=== PATIENT | female | born 1955 | race Caucasian/White ===

== ENCOUNTER → 2017-01-09 | Outpatient (CLI) | payer OTHER ==
--- NOTE | 2017-01-12 09:15 | XR ---
EXAMINATION TYPE: XR hand complete bilateral DATE OF EXAM: 01/09/2017 3:29 PM CLINICAL HISTORY: Bilateral chronic hand pain. TECHNIQUE: Frontal, lateral and oblique images of the bilateral hands are obtained. COMPARISON: None. FINDINGS: There is no acute fracture/dislocation evident in either hand. Osseous structures are jordyn neralized. There is fairly advanced degenerative change in the the IP joints bilaterally most promine nt bilaterally at the second third and fifth digits slightly worse on the left versus the right with marked joint space loss as well as central subchondral cystic changes and marginal spurring and soft tissue swelling. Findings less pronounced at the PIP joints but there is soft tissue swelling with so me joint space loss and spurring most prominent fourth PIP joint right hand. There is sparing of meta carpal phalangeal joints. There is joint space loss base of first metacarpal. IMPRESSION: There are fairly symmetric degenerative changes in both hands as detailed above, suspect moderate to severe osteoarthritis given sparing of MCP joints.
== END | disposition home or self-care (01) ==
LOC: RADXRYALE 14:54
PROVIDERS: ATTEND Family Medicine
DX: M25.842 Other specified joint disorders, left hand (principal); M25.841 Other specified joint disorders, right hand; M79.642 Pain in left hand; M79.641 Pain in right hand

== ENCOUNTER → 2017-12-11 | Outpatient (CLI) | payer OTHER ==
--- NOTE | 2017-12-11 10:49 | US ---
EXAMINATION TYPE: US abdomen complete DATE OF EXAM: 12/11/2017 COMPARISON: NONE CLINICAL HISTORY: R10.9 ABD PAIN,R10.13 EPIGASTRIC PAIN. EXAM MEASUREMENTS: Liver Length: 15.1 cm Gallbladder Wall: 0.1 cm CBD: 0.4 cm Spleen: 9.8 cm Right Kidney: 11.5 x 4.6 x 3.7 cm Left Kidney: 11.3 x 4.7 x 4.6 cm Pancreas: wnl Liver: 2 hypoechoic, nonvascular masses noted near gallbladder neck/ portal vein 1) = 1.3 x 1.9 x 1. 2 cm 2)= 1.2 x 1.1 x 0.9 cm Gallbladder: wnl, with phrygian cap Evidence for sonographic Turner's sign: no CBD: wnl Spleen: wnl Right Kidney: wnl Left Kidney: wnl Upper IVC: wnl Abd Aorta: wnl The intrahepatic portion of the IVC and proximal abdominal aorta are within normal limits. There is no evidence of cholelithiasis. Common bile duct is unremarkable. The visualized portions of the trinh creas are homogenous. The spleen is unremarkable. Kidneys are symmetric and free of hydronephrosis. No renal lesions are seen. IMPRESSION: 1. Incompletely characterized hepatic masses measuring 1.9 cm and 1.2 cm. Further characterization wi th dynamic enhanced CT or MR abdomen (liver mass protocol) is recommended for further characterizatio n. 2. No sonographic evidence of cholelithiasis or acute cholecystitis.
--- NOTE | 2017-12-11 11:20 | US ---
EXAMINATION TYPE: US thyroid st tissue head/neck DATE OF EXAM: 12/11/2017 COMPARISON: NONE CLINICAL HISTORY: E03.9 HYPOTHYROIDISM. pt c/o rapid weight gain and feeling of "lump" in throat. MEASUREMENTS: GLAND SIZE: Right Lobe: 3.9 x 1.5 x 1.1 cm Left Lobe: 4.0 x 1.4 x 1.4 cm Isthmus Thickness: 0.2 cm NODULES RIGHT: # of nodules measured on right: 0 LEFT: # of nodules measured on left: 0 ISTHMUS: # of nodules measured within isthmus: 0 Bilateral neck scanned, no evidence of lymphadenopathy. Heterogeneous texture bilaterally. No distinct nodules seen IMPRESSION: No discrete thyroid nodules are thyroid gland enlargement. Diffusely heterogenous thyroi d gland echotexture can relate to thyroiditis. Correlate with serum laboratory values.
== END | disposition home or self-care (01) ==
LOC: RADUSWWP 08:55
PROVIDERS: ATTEND Family Medicine
DX: E04.9 Nontoxic goiter, unspecified (principal); E03.9 Hypothyroidism, unspecified; R10.13 Epigastric pain; R16.0 Hepatomegaly, not elsewhere classified
CPT/HCPCS: 76536; 76700

== ENCOUNTER 2017-12-14 08:22 | Day surgery (SDC) | payer OTHER ==
[2017-12-11 12:32] VITALS: BMI 25.8
[~2017-12-14 08:22] MED LIST: LACTATED RINGERS 1,000 ML IV SCH; LIDOCAINE 1% 20 ML VIAL (10MG/ML) FOR IV START INTRADERMA PRN
[2017-12-14 08:48] VITALS: TEMP 98.8
[2017-12-14 09:08] LABS: Glucose,Whole Blood 90 mg/dL (75-99)
[2017-12-14] MEDS ORDERED: LIDOCAINE 1% INJ 10MG/ML (20 ML MDV) ONE (09:11)
[2017-12-14] MEDS ORDERED: PROPOFOL 10 MG/ML 20 ML VIAL IV ONE (09:11)
[2017-12-14] MEDS ORDERED: MIDAZOLAM 2 MG/2 ML VIAL ONE (09:11)
--- NOTE | 2017-12-14 09:40 | P.PCN ---
Date of Procedure: 12/14/17 Procedure(s) Performed: Procedure: Esophagogastroduodenoscopy and biopsy. Preoperative diagnosis: Epigastric pain. Postoperative diagnosis: 1. Small sliding hiatal hernia with no obvious esophagitis or complicated reflux disease. 2. Mild antral gastritis. 3. Multiple biopsies obtained from the duodenum, antrum and esophagus. Preparation and sedation: Were provided by anesthesia. Brief clinical history: The patient is a 62-year-old female who is scheduled for this evaluation because of epigastric pain. The patient gave history of hiatal hernia. No alarm symptoms. Had an ultrasound of the abdomen 12/11/2017 that showed 2 hypoechoic nonvascular masses near the gallbladder neck. There was no evidence of cholelithiasis or acute cholecystitis. Dynamic enhanced CT or MRI was recommended by radiology. This evaluation is scheduled to assess for esophagitis or complicated reflux disease or other pathology. Procedure: With the patient on her left lateral decubitus position and after informed consent and adequate sedation, I passed the Olympus-GIF 160 video upper endoscope through the cricopharyngeus down the esophagus. GE junction was around 40 cm from the incisors and there was a 1-2 cm sliding hiatal hernia but no obvious esophagitis or complicated reflux disease. The endoscope was then passed into the stomach which was insufflated with air and inspected in detail including the retroflex view in the cardia. There was some mottling and erythema in the antrum but no ulcers or erosions. Pyloric channel, duodenal bulb, post bulbar area and descending duodenum appeared within normal limits. Because of her symptoms, I obtained biopsies from the duodenum, antrum and esophagus then the endoscope was withdrawn. The patient tolerated the procedure well. Plan: The patient was reassured. Will await pathology results. Further plans can be made based on her course, biopsy results and additional imaging studies as suggested by radiology. I would be happy to see in the office if her symptoms persist. She will follow-up with you as planned.
[2017-12-14 09:43] VITALS: RESP 18
[2017-12-14 09:56] VITALS: BP 153/81; PULSE 59
== END 2017-12-14 10:16 | disposition home or self-care (01) ==
LOC: ORWHC2ENDO 08:22
DX: K29.50 Unspecified chronic gastritis without bleeding (principal); B96.81 Helicobacter pylori [H. pylori] as the cause of diseases classified elsewhere; K44.9 Diaphragmatic hernia without obstruction or gangrene; I10 Essential (primary) hypertension; J45.909 Unspecified asthma, uncomplicated; E03.9 Hypothyroidism, unspecified; M06.9 Rheumatoid arthritis, unspecified; Z91.040 Latex allergy status; Z88.5 Allergy status to narcotic agent; Z88.1 Allergy status to other antibiotic agents; Z79.1 Long term (current) use of non-steroidal anti-inflammatories (NSAID); Z79.899 Other long term (current) drug therapy
CPT/HCPCS: 88305; 88342; 43239; J2250; J2001; J2704

== ENCOUNTER → 2017-12-25 | Outpatient (CLI) | payer OTHER ==
--- NOTE | 2017-12-25 16:34 | CT ---
EXAMINATION TYPE: CT abdomen wo/w con DATE OF EXAM: 12/25/2017 COMPARISON: NONE INDICATION: Weight gain, abdominal swelling DLP: 1689 mGycm, Automated exposure control for dose reduction was used. CONTRAST: 100 mL of Omnipaque 300. Study performed with Oral Contrast TECHNIQUE: Axial images were obtained from above the diaphragm to the pubic rami in the axial plane a t 5 mm thick sections. Reconstructed images are reviewed on the computer in the coronal plane. Dynam ic scanning to the liver was performed. FINDINGS: Limited CT sections are obtained the lung bases. The lung bases are clear. CT ABDOMEN: Liver: Early phase contrast imaging to the liver appear unremarkable. On post contrast imaging subtle hypodensity on both early and late phase is within the lateral right lobe liver. This is too small t o classify. Enhancement is not evident. There is an additional hypodensity near the gallbladder bed f sridhar. This has some peripheral enhancement and some edge enhancement on delayed images. This appears to have complete enhancement on the marked delayed images. Findings are likely related to a 1.0 cm he mangioma. Spleen: Normal Pancreas: Normal Adrenal glands: The adrenal glands are normal. Gallbladder: Normal Kidneys: No masses are evident. No hydronephrosis is present. There is a 1.1 cm cyst on the lateral right kidney measuring 0 Hounsfield units. Delayed images were obtained through the kidneys. Aorta: Vascular calcification is within the aorta. Inferior vena cava: Normal. Loops of bowel distended with oral contrast appear unremarkable. IMPRESSIONS: 1. Suspected hemangioma right lobe liver adjacent to the gallbladder bed fossa. 2. Nonspecific hypodense area within the right lobe liver too small to classify.
== END ==
LOC: RADCTMAIN 11:52
PROVIDERS: ATTEND Family Medicine
DX: K76.89 Other specified diseases of liver (principal)
CPT/HCPCS: 74170; Q9967

== ENCOUNTER → 2018-03-24 | Outpatient (CLI) | payer OTHER ==
--- NOTE | 2018-03-24 16:25 | XR ---
EXAMINATION TYPE: XR knee complete RT DATE OF EXAM: 03/24/2018 CLINICAL HISTORY: Right knee pain and swelling for 5 days. TECHNIQUE: Three views of the right knee are obtained. COMPARISON: None. FINDINGS: There is no acute fracture/dislocation evident in right knee. There is mild to moderate tr icompartment joint space loss. There is mild spurring patellofemoral compartment. The overlying soft tissue appears unremarkable. IMPRESSION: As above.
== END | disposition home or self-care (01) ==
LOC: RADXRYALE 15:34
PROVIDERS: ATTEND Physician Assistant Medical
DX: M22.2X2 Patellofemoral disorders, left knee (principal); M25.561 Pain in right knee

== ENCOUNTER → 2018-09-09 | Outpatient (CLI) | payer OTHER ==
--- NOTE | 2018-09-10 08:25 | CT ---
EXAMINATION TYPE: CT abdomen pelvis w con DATE OF EXAM: 09/09/2018 HISTORY: abdominal pain, weight gain, diarrhea, nausea X [address] DLP: 983.9mGycm Automated Exposure Control for Dose Reduction was Utilized. CONTRAST: CT scan of the abdomen and pelvis is performed with IV Contrast, patient injected with 100 mL of Isov ue 300. COMPARISON: 12/25/2017 CT and abdominal ultrasound dated 12/11/2017. FINDINGS: LUNG BASES: Prominent right subpleural fat is unchanged from the prior. Otherwise lung bases are unre markable. LIVER/GB: There is a similar appearing proximally 1.7 x 1.1 cm mass in segment IVb near the gallbladd er fossa that demonstrates arterial enhancement throughout on series 3 image 24. Additional new focus of subcapsular arterial enhancement is seen on series 3 image 22 within segment 6. At the most infer ior aspect of the right hepatic lobe on image 34 and coronal image 28 there is a 3 mm arterially enha ncing focus better appreciated on coronal images. All of these appear similar to background hepatic p arenchymal enhancement on delayed imaging. No intrapelvic biliary ductal dilatation. No cholelithiasi s. PANCREAS: No significant abnormality is seen. SPLEEN: No splenomegaly as the spleen measures 10.8 cm in craniocaudal dimension. ADRENALS: No significant abnormality is seen. KIDNEYS: Similar-appearing approximately 1.1 cm right renal cyst is present. No hydronephrosis. BOWEL: There is circumferential rectal wall thickening on series 3 images 72 and 73. This could relat e to incomplete distention although underlying mass is possible. Colon is suboptimally evaluated as c ontrast has not extended into the colon at the time of imaging. Additionally there is a small amount of retained colonic fecal debris also limiting evaluation. Scattered colonic diverticula are seen wit hout pericolonic fat stranding. UTERUS/ADNEXA: No gross abnormality seen. LYMPH NODES: No greater than 1cm abdominal or pelvic lymph nodes are appreciated. OSSEOUS STRUCTURES: Multilevel degenerative change of the spine is straightening of usual lumbar lord osis. IMPRESSION: 1. Similar size of the previously seen largest hepatic lesion with 2 new arterial enhancing subcentim eter lesions that are too small to characterize. In regards to the largest lesion that demonstrates a rterial enhancement without washout, however has atypical characteristics of a hemangioma on the abdo luis manuel ultrasound of 12/11/2017 and therefore confirmatory enhanced MRI would be advised. 2. Mild circumferential rectal wall thickening that may relate to incomplete distention or underlying mass. Colonoscopy would be recommended if not recently performed.
== END | disposition home or self-care (01) ==
LOC: RADCTMAIN 15:57
DX: K76.9 Liver disease, unspecified (principal); K62.89 Other specified diseases of anus and rectum; R10.30 Lower abdominal pain, unspecified
CPT/HCPCS: 74177; Q9967

== ENCOUNTER 2018-11-11 12:07 | Day surgery (SDC) | payer OTHER ==
[2018-11-05 14:24] VITALS: BMI 27.9
[~2018-11-11 12:07] MED LIST changes: -LACTATED RINGERS 1,000 ML IV SCH; +MIDAZOLAM (PF) 2 MG/2 ML VIAL IV PRN
[2018-11-11 12:58] VITALS: TEMP 97.5
[2018-11-11] MEDS: LACTATED RINGERS 1,000 ML IV SCH ×2 (13:15→13:25)
[2018-11-11] MEDS ORDERED: PROPOFOL 10 MG/ML 20 ML VIAL IV ONE (13:31)
--- NOTE | 2018-11-11 14:04 | P.PCN ---
Date of Procedure: 11/11/18 Procedure(s) Performed: Procedure: Colonoscopy and biopsy. Preoperative diagnosis: Change in bowel habits and abnormal CT of the abdomen. Postoperative diagnosis: 1. Diminutive rectal polyp biopsied, otherwise, exam of the colon and terminal ileum within normal limits. 2. Biopsies also obtained in the terminal ileum, right colon and rectum. Preparation: HalfLytely prep. Sedation: Was provided by anesthesia. Brief clinical history: The patient is a 63-year-old female who was scheduled for this evaluation because of intermittent diarrhea and abnormal CT showing thickened rectum. This evaluation is to assess for inflammatory bowel disease or neoplasia. Procedure: With the patient on her left lateral decubitus position and after informed consent and adequate sedation, the perianal area was inspected and it did not show any fissures or fistulas. There were no masses felt on digital rectal examination. The Olympus CFH 190L video colonoscope was then inserted in the rectum in the usual fashion and advanced to the cecum. I intubated the ileocecal valve and examined the terminal ileum. Terminal ileum and colon appeared healthy with no edema, erythema, friability, ulceration, exudation or spontaneous bleeding. No large polyps or tumors were seen. No obvious diverticular disease. There was a diminutive polyp in the rectum close to the rectosigmoid junction which was biopsied but there were no large polyps or tumors. The rectum did not show any abnormality to correspond to the finding on CT. Biopsies were obtained from the terminal ileum, right colon and rectum then the endoscope was retroflexed in the rectum before the endoscope was withdrawn. The patient tolerated the procedure well. Plan: The patient was reassured. Will await pathology results. Further plans based on her course.
[2018-11-11 14:20] VITALS: BP 129/69; PULSE 57; RESP 16
== END 2018-11-11 14:53 | disposition home or self-care (01) ==
LOC: ORWHC2ENDO 12:07
DX: D12.8 Benign neoplasm of rectum (principal); R93.5 Abnormal findings on diagnostic imaging of other abdominal regions, including retroperitoneum; J45.909 Unspecified asthma, uncomplicated; I10 Essential (primary) hypertension; E07.9 Disorder of thyroid, unspecified; B19.10 Unspecified viral hepatitis B without hepatic coma; Z79.2 Long term (current) use of antibiotics; Z79.890 Hormone replacement therapy; Z79.899 Other long term (current) drug therapy; Z88.5 Allergy status to narcotic agent; Z88.1 Allergy status to other antibiotic agents; Z91.040 Latex allergy status; Z98.51 Tubal ligation status
CPT/HCPCS: 88305; 45380; J2704

== ENCOUNTER → 2018-12-03 | Outpatient (CLI) | payer OTHER ==
--- NOTE | 2018-12-05 13:01 | XR ---
EXAMINATION TYPE: XR cervical spine comp DATE OF EXAM: 12/03/2018 COMPARISON: None HISTORY: 63-year-old female cervicalgia with intermittent numbness of the left upper extremity. TECHNIQUE: 5 views FINDINGS: Uncovertebral and facet joint arthropathy throughout. Moderate to advanced disposition of the degener ative change particularly from C3 through C5 levels and than at C6-C7 as well. Trace grade 1 anteroli sthesis at C7-T1. No predental space widening or prevertebral soft tissue swelling. Normal odontoid v iew. On the right, changes result in mild to moderate bony spondylotic neural foraminal narrowing at C6-C7 and mild additional levels. On the left, changes result in moderate bony spondylotic neuroforaminal narrowing at multiple levels, greatest at C3-C4 and C4-C5. IMPRESSION: Moderate to advanced spondylotic change. Degenerative grade 1 anterolisthesis at C7-T1. Variable mild neural foraminal narrowing on the right and moderate on the left.
== END | disposition home or self-care (01) ==
LOC: RADXRYALE 16:31
PROVIDERS: ATTEND Physician Assistant Medical
DX: M99.71 Connective tissue and disc stenosis of intervertebral foramina of cervical region (principal); M43.13 Spondylolisthesis, cervicothoracic region; M47.812 Spondylosis without myelopathy or radiculopathy, cervical region
CPT/HCPCS: 72050

== ENCOUNTER → 2018-12-24 | Outpatient (CLI) | payer OTHER ==
--- NOTE | 2018-12-25 19:31 | MR ---
EXAMINATION TYPE: MR cervical spine wo con DATE OF EXAM: 12/24/2018 COMPARISON: None HISTORY: Neck pain, Dave arm pain/weakness/numbness, Headaches TECHNIQUE: Multiplanar, multisequence images of the cervical spine were acquired. The cervical vertebra have normal alignment. There is degenerative disc space 9 from C3 to C7 with sp urring of the endplates. The skull base appears intact. Brainstem appears normal. Cervical spinal cor d shows no evidence of edema. There is no significant spinal stenosis. The spinal canal measures 7.5 mm at the narrowest point which is C4-5 level. There is no compression fracture. I see no focal bone destruction. There is multilevel hypertrophic facet arthropathy. IMPRESSION: Multilevel spondylotic changes. Posterior mild disc herniations at C3-4 and C4-5 and C6-7 without sig nificant impingement on the spinal canal.
== END ==
LOC: RADMRIMAIN 19:28
PROVIDERS: ATTEND Physician Assistant Medical
DX: M50.223 Other cervical disc displacement at C6-C7 level (principal); M47.812 Spondylosis without myelopathy or radiculopathy, cervical region
CPT/HCPCS: 72141

== ENCOUNTER → 2019-10-13 | Outpatient (CLI) | payer OTHER ==
--- NOTE | 2019-10-13 10:39 | CT ---
EXAMINATION TYPE: CT abdomen wo/w con DATE OF EXAM: 10/13/2019 COMPARISON: 09/09/2018, 12/25/2017 INDICATION: follow up to hemangioma DLP: 1160.9 mGycm, Automated exposure control for dose reduction was used. CONTRAST: 100 mL of Isovue 300. Study performed with Oral Contrast TECHNIQUE: Axial images were obtained from above the diaphragm to the pubic rami in the axial plane a t 5 mm thick sections. Reconstructed images are reviewed on the computer in the coronal plane. FINDINGS: Limited CT sections are obtained the lung bases. The lung bases are clear. CT ABDOMEN: Liver: Adjacent to the ligamentum teres near the hepatic hilum on early phase contrast is a 1.5 x 1.7 cm peripherally irregular enhancing area. This area corresponds homogenous enhancement present on th e 09/09/2018 examination which measured 1.7 x 1.1 cm. Delayed images were obtained which appears to rivera ve homogenous liver density. Residual enhancement is not evident. The small area of subtle enhancement in the periphery of the right lobe liver identified previously i s not evident through multiple pulse sequences on the current examination. Spleen: Normal Pancreas: Normal Adrenal glands: The adrenal glands are normal. Gallbladder: Normal Kidneys: No masses are evident. No hydronephrosis is present. No obvious cysts are present. Delaye d images were obtained through the kidneys, a small cortical renal cyst is identified in the right ki dney on delayed images.. Aorta: Vascular calcification is within the aorta. Inferior vena cava: Normal. Limited CT PELVIS: Loops of bowel within the abdomen and upper pelvis are normal. There are loops of bowel which are incompletely distended or lack oral contrast limiting their evaluation. Appendix: Normal as visualized. IMPRESSIONS: 1. Heterogenous appearance to the enhancement in the liver at the previous location adjacent to the ligamentum teres. This is not classically follow up hemangioma enhancement pattern and has increased in size over the interval. Confirmation of findings is recommended with a contrast MRI of the liver. This could also evaluate the previous subtle area of enhancement within the periphery of the right lo be liver identified previously.
== END | disposition home or self-care (01) ==
LOC: RADCTMAIN 08:31
PROVIDERS: ATTEND Physician Assistant Medical
DX: D18.03 Hemangioma of intra-abdominal structures (principal); M79.605 Pain in left leg; M79.661 Pain in right lower leg; I10 Essential (primary) hypertension
CPT/HCPCS: 93922; 74170; Q9967

== ENCOUNTER → 2019-12-28 | Outpatient (CLI) | payer OTHER ==
--- NOTE | 2019-12-28 17:08 | MR ---
EXAMINATION TYPE: MR abdomen wo/w con DATE OF EXAM: 12/28/2019 COMPARISON: Correlation CT abdomen 10/13/2019 and 09/09/2018 HISTORY: 64-year-old female with abnormal findings on liver, R93.2 Technique: Multiplanar, multisequence images of the abdomen were obtained before and after administra tion of 10 mL intravenous Gadavist gadolinium contrast. FINDINGS: Heart normal size of the pericardial effusion. Liver is normal size. Opposed phase T1-weighted sequences show no evidence for any significant fatty infiltration. 2 lesions along the gallbladder fossa show T2 bright and T1 dark signal measuring 1.8 and 1.0 cm, unc hanged in size from the 09/09/2018 exam. The larger lesion shows peripheral nodular enhancement and fill-in on the most delayed scan. The smal ler lesion shows homogeneous arterial enhancement and persistent enhancement up to the delayed scan. A few scattered tiny hepatic cysts are noted. Some focal fat along the anterior falciform ligament. N o biliary ductal dilatation. Portal venous system is patent. Gallbladder, adrenal glands, left kidney, spleen, and pancreas appear within normal limits. 1 cm cortical cyst lateral midpole right kidney. No upper abdominal lymphadenopathy, ascites fluid, or gross bowel abnormality. Normal appendix is vis ualized. IMPRESSION: 1. 2 lesions measuring 1.8 and 1.0 cm along the gallbladder fossa. Size is stable back to 09/09/2018. Enhancement characteristics suggest a conventional hemangioma for the larger lesion and flash filling hemangioma for the smaller lesion, both benign. 2. Additional tiny subcentimeter hepatic cysts.
== END | disposition home or self-care (01) ==
LOC: RADMRIMAIN 13:01
PROVIDERS: ATTEND Physician Assistant
DX: K82.8 Other specified diseases of gallbladder (principal); K76.89 Other specified diseases of liver
CPT/HCPCS: 74183; A9585

== ENCOUNTER → 2020-01-20 | Outpatient (CLI) | payer OTHER ==
--- NOTE | 2020-01-23 09:59 | MM ---
Reason for exam: screening (asymptomatic). Last mammogram was performed 14 years and 4 months ago. History: Patient is postmenopausal. Benign lumpectomy of both breasts, 1989. Physical Findings: A clinical breast exam by your physician is recommended on an annual basis and results should be correlated with mammographic findings. MG Screening Mammo w CAD Bilateral CC and MLO view(s) were taken. No prior studies available for comparison. The breast tissue is heterogeneously dense. This may lower the sensitivity of mammography. Finding: There are intermediate round, grouped/clustered calcifications in the middle position of both breasts, 3-4cm on left, 5cm on right. ASSESSMENT: Incomplete: need additional imaging evaluation, BI-RAD 0 RECOMMENDATION: Special view mammogram of both breasts. [facility] will attempt to contact patient to return for supplemental views.
== END | disposition home or self-care (01) ==
LOC: RADMAMWWP 15:39
PROVIDERS: ATTEND Family Medicine
DX: Z12.31 Encounter for screening mammogram for malignant neoplasm of breast (principal); R92.8 Other abnormal and inconclusive findings on diagnostic imaging of breast
CPT/HCPCS: 77067

== ENCOUNTER → 2020-01-27 | Outpatient (CLI) | payer OTHER ==
--- NOTE | 2020-01-27 12:19 | MM ---
Reason for exam: additional evaluation requested from abnormal screening. Last mammogram was performed less than 1 month ago. History: Patient is postmenopausal. Benign lumpectomy of both breasts, 1989. Physical Findings: Nurse did not find any significant physical abnormalities on exam. MG 3D Work Up W/Cad EBER Bilateral CC with magnification and ML with magnification view(s) were taken. Prior study comparison: January 20, 2020, bilateral MG screening mammo w CAD. September 30, 2005, bilateral screening mammogram, performed at [facility]. The breast tissue is heterogeneously dense. This may lower the sensitivity of mammography. There is a 4mm group of calcifications in the upper inner quadrant at middle depth most of which appear to layer on the spot magnifications view. Precautionary 6 month follow up recommended. The left calcifications do not persist as a true group on additional views. These results were verbally communicated with the patient and result sheet given to the patient on 01/27/20. ASSESSMENT: Probably benign, BI-RAD 3 RECOMMENDATION: Follow-up diagnostic mammogram of the right breast in 6 months.
== END | disposition home or self-care (01) ==
LOC: RADMAMWWP 10:47
PROVIDERS: ATTEND Family Medicine
DX: R92.8 Other abnormal and inconclusive findings on diagnostic imaging of breast (principal)
CPT/HCPCS: 77062; 77066

== ENCOUNTER → 2021-11-11 | Outpatient (CLI) | payer MEDICARE ==
--- NOTE | 2021-11-11 14:34 | CT ---
EXAMINATION TYPE: CT brain wo/w con DATE OF EXAM: 11/11/2021 COMPARISON: None HISTORY: 66-year-old female R42, dizziness, nausea, vomiting TECHNIQUE: Examination was done in axial plane without intravenous contrast. Coronal and sagittal r econstructions performed. CT DLP: 1920.3 mGycm Automated exposure control for dose reduction was used. FINDINGS: There is no evidence of acute intracranial hemorrhage, acute ischemic changes, mass, mass-effect, or extra-axial fluid collection. There is no effacement of cerebral sulci or basal subarachnoid cister ns. There is no hydrocephalus. There is no midline shift. Mallory-white matter distinction is preserv ed. Scattered dystrophic dural calcifications along the falx. No enhancing intracranial lesions. Dural venous sinuses are patent. Orbits and globes are intact. Visualized paranasal sinuses show trace mucosal thickening ethmoid air cells. Mastoid air cells well pneumatized. IMPRESSION: No acute intracranial abnormality seen. No enhancing intracranial lesions.
--- NOTE | 2021-11-11 14:37 | CT ---
EXAMINATION TYPE: CT facial bones wo con DATE OF EXAM: 11/11/2021 COMPARISON: None HISTORY: 66-year-old female R42, dizziness, nausea, vomiting TECHNIQUE: Contiguous axial scanning of the facial bones without IV contrast. Coronal reconstructions performed. CT DLP: 705 mGycm Automated exposure control for dose reduction was used. FINDINGS: Trace mucosal thickening ethmoid air cells. Leftward nasal septal deviation. The sphenoid, frontal, and maxillary sinuses are well-pneumatized. No air-fluid levels. No reactive new osteogenesis. Osteomeatal complexes are patent. No acute fracture of the facial bones. IMPRESSION: TRACE MUCOSAL THICKENING ETHMOID AIR CELLS. LEFTWARD NASAL SEPTAL DEVIATION.
== END | disposition home or self-care (01) ==
LOC: RADCTMAIN 12:54
PROVIDERS: ATTEND Family Medicine
DX: J34.89 Other specified disorders of nose and nasal sinuses (principal)
CPT/HCPCS: 82565; 84520; 70486; 70470; 36415; Q9967

== ENCOUNTER → 2022-03-25 | Outpatient (CLI) | payer MEDICARE ==
--- NOTE | 2022-03-25 15:40 | MM ---
Reason for Exam: Hx of benign breast biopsy. Last mammogram was performed 2 year(s) and 2 month(s) ago. Patient History: Menarche at age 17. First Full-Term at age 29. Postmenopausal. 1989, Bilateral Benign Lumpectomy. Risk Values: Kiersten 5 year model risk: 1.7%. NCI Lifetime model risk: 6.1%. Film Views: Bilateral CC views were taken. Bilateral MLO views were taken. Tissue Density: The breast tissue is heterogeneously dense. This may lower the sensitivity of mammography. Findings: Analyzed By CAD. Small grouped area of microcalcifications centrally on the right MLO view and centrally on the left CC view remain unchanged for just over 2 years. This is compatible with a benign etiology. No significant change from prior exam. Overall Assessment: Benign, BI-RAD 2 Management: Screening Mammogram of both breasts in 1 year. Results were given to the patient verbally at the time of exam. A clinical breast exam by your physician is recommended on an annual basis and results should be correlated with mammographic findings. Patient should continue monthly self breast exams.
--- NOTE | 2022-03-25 17:07 | BD ---
EXAMINATION TYPE: Axial Bone Density DATE OF EXAM: 03/25/2022 CLINICAL HISTORY: 67 years year old Female. ICD-10 CODE: M84.80 OTHER DISORDERS OF CONTINUITY OF BON E, UNSPECIFIED SI Height: 68 Weight: 187.6 FRAX RISK QUESTIONS: Alcohol (3 or more units per day): NO Family History (Parent hip fracture): NO Glucocorticoids (More than 3mos): NO History of Fracture in Adulthood: NO Secondary Osteoporosis: 1. Type 1 Diabetes: NO 2. Hyperthyroidism: NO 3. Menopause before 45: YES 4. Malnutrition: NO 5. Chronic liver disease: NO Rheumatoid Arthritis: NO Current Tobacco Use: NO RISK FACTORS HISTORY OF: Hip Fracture (Right/Left): NO Spine Fracture: NO History of Wrist Fracture: NO Surgery to Spine/Hip(right/left)/Wrist (right/left): BILAT WRIST When: AGE 65 Family History of Osteoporosis: NO Active: YES Diet low in dairy products/other sources of calcium: YES Postmenopausal woman: YES Take estrogen and/or progesterone medications: NO Lost more than 2 inches in height since high school: YES Frequent falls: NO Poor Health: NO Hyperparathyroidism: NO Adrenal Insufficiency: NO MEDICATIONS: Prednisone or other steroids: NO Thyroid Medications: SYNTHROID How Long: PAST 38 YEARS Osteoporosis Medications: NO Additional Medications: BP MEDS, SINGULAR, VIT D, ZINC, FLOVENT INHALERS Additional History: EXAM MEASUREMENTS: Bone mineral densitometry was performed using the [employer]. Bone mineral density as measured about the Lumbar spine is: ----- L1-L4(G/cm2): 1015 T Score Values are as follows: ----- L1: -2.3 ----- L2: -2.5 ----- L3: -2.2 ----- L4: 0.4 ----- L1-L4: -1.4 BASELINE STUDY Bone mineral density about the R hip (g/cm2): 0.856 Bone mineral density about the L hip (g/cm2): 0.906 T Score values are as follows: -----R Neck: -1.3 -----L Neck: -0.9 -----R Total: -0.6 -----L Total: -0.8 BASELINE STUDY FRAX%s: The graph provided illustrates a 8.6% chance for a major osteoporotic fx and a 0.8% chance fo r the hips probability for fx in 10 years time. IMPRESSION: Osteopenia (T Score between -2.5 and -1). There is slightly increased risk of fracture and the patient may be considered for treatment. Re-Screen 2-5 years. NOTE: T-SCORE=SD OF THE YOUNG ADULT MEAN.
== END | disposition home or self-care (01) ==
LOC: RADMAMWWP 14:05
PROVIDERS: ATTEND Family Medicine
DX: R92.8 Other abnormal and inconclusive findings on diagnostic imaging of breast (principal); M85.89 Other specified disorders of bone density and structure, multiple sites; Z78.0 Asymptomatic menopausal state
CPT/HCPCS: 77080; 77066; G0279; 77062

== ENCOUNTER 2023-05-11 17:31 | Emergency (ER) | payer MEDICARE ==
--- NOTE | 2023-05-11 17:36 | ED ---
General Adult HPI - General Source: RN notes reviewed <Diane Adams - Last Filed: 05/11/23 17:39> <Joe Perdomo - Last Filed: 05/12/23 00:09> - General Stated complaint: MANISH, history of Dr Archana Sent Time Seen by Provider: 05/11/23 17:36 - History of Present Illness Initial comments: 68-year-old female with past medical history significant for asthma presents the emergency department with worsening shortness of breath. She reports she has taken multiple breathing treatments at home without symptomatic relief. (Diane Adams) This is a 68-year-old female with a past medical history including anxiety and asthma presents to the emergency department for increasing shortness of breath. The patient stated that throughout the day today she stated that she tried to walk around the house but could not catch her breath. The patient did state that she had similar episodes in the past but stated that she never come to the emergency department for it. The patient did state that she used a breathing treatment at home as well as an Ativan but her physician did advise her to come to the emergency department for the evaluation. On arrival, the patient did seem anxious and tachypneic however had full deep breaths noted. The patient denied any other acute pain or complaints at this time. The patient denied any fevers, chills as well as any nausea and vomiting. (Joe Perdomo) - Related Data Home Medications Medication Instructions Recorded Confirmed Levalbuterol Hfa Inhaler [Xopenex 2 puff INHALATION Q4HR PRN 06/20/14 11/11/18 Hfa Inhaler] Levocetirizine Dihydrochloride 5 mg PO DAILY 06/20/14 11/11/18 [Xyzal] Levothyroxine Sodium [Synthroid] 100 mcg PO DAILY 06/20/14 11/11/18 atenoloL [Tenormin] 25 mg PO DAILY 06/20/14 11/11/18 Acyclovir [Zovirax] 200 mg PO BID PRN 12/11/17 11/11/18 Montelukast [Singulair] 10 mg PO DAILY 12/11/17 11/11/18 Amoxic-Pot Clav 500-125 mg 1 tab PO Q12HR 11/05/18 11/11/18 [Augmentin 500-125 mg] hydroCHLOROthiazide [Hydrodiuril] 25 mg PO DAILY 11/05/18 11/11/18 Allergies Allergy/AdvReac Type Severity Reaction Status Date / Time gentamicin [Gentamicin] Allergy Rash/Hives Verified 11/11/18 12:55 latex Allergy Rash/Hives Verified 11/11/18 12:55 codeine AdvReac Vomiting Verified 11/11/18 12:55 Review of Systems ROS Other: All systems not noted in ROS Statement are negative. <Diane Adams - Last Filed: 05/11/23 17:39> ROS Other: All systems not noted in ROS Statement are negative. <Joe Perdomo - Last Filed: 05/12/23 00:09> ROS Statement: Those systems with pertinent positive or pertinent negative responses have been documented in the HPI. Past Medical History Past Medical History: Asthma, Hypertension Additional Past Medical History / Comment(s): hypothyroid, migraines History of Any Multi-Drug Resistant Organisms: None Reported Past Surgical History: Tonsillectomy, Tubal Ligation Additional Past Surgical History / Comment(s): lumpectomy Past Anesthesia/Blood Transfusion Reactions: Family History of Problems w/ Anesthesia, Motion Sickness, Postoperative Nausea & Vomiting (PONV) Additional Past Anesthesia/Blood Transfusion Reaction / Comment(s): states mothers heart stopped. Past Psychological History: No Psychological Hx Reported Past Alcohol Use History: Occasional Past Drug Use History: None Reported - Past Family History Sister(s) Family Medical History: Cancer Additional Family Medical History / Comment(s): lung cancer <Diane Adams - Last Filed: 05/11/23 17:39> General Exam <Diane Adams - Last Filed: 05/11/23 17:39> Limitations: no limitations General appearance: alert, anxious Head exam: Present: atraumatic, normocephalic, normal inspection Eye exam: Present: normal appearance, PERRL Pupils: Present: normal accommodation ENT exam: Present: normal exam, normal oropharynx, mucous membranes moist Neck exam: Present: normal inspection, full ROM Respiratory exam: Present: normal lung sounds bilaterally. Absent: wheezes, decreased breath sounds Cardiovascular Exam: Present: regular rate, normal rhythm, normal heart sounds GI/Abdominal exam: Present: soft, normal bowel sounds Extremities exam: Present: normal inspection, full ROM Back exam: Present: normal inspection, full ROM Neurological exam: Present: alert, oriented X3, CN II-XII intact Psychiatric exam: Present: anxious Skin exam: Present: warm, dry <Joe Perdomo - Last Filed: 05/12/23 00:09> - General Exam Comments Initial Comments: Visual Physical Exam Vital signs reviewed General: Well-appearing, nontoxic, no acute distress. Head: Normocephalic, atraumatic Eyes: PERRLA, EOMI ENT: Airway patent Chest: Nonlabored breathing Skin: No visual rash, normal skin tone Neuro: Alert and oriented 3 Musculoskeletal: No gross abnormalities (Diane Adams) Course Vital Signs 05/11/23 05/11/23 05/11/23 17:39 18:42 21:00 Temperature 97.8 F Pulse Rate 99 81 73 Respiratory 18 34 H 16 Rate Blood Pressure 126/72 118/71 141/82 O2 Sat by Pulse 99 99 99 Oximetry 05/11/23 23:55 Temperature Pulse Rate 80 Respiratory 18 Rate Blood Pressure 136/98 O2 Sat by Pulse 97 Oximetry EKG Findings - EKG Comments: EKG Findings:: An EKG was obtained and was interpreted by myself showing a rate of 86, MO interval 163, QRS duration of 88 and QTC of 427. This EKG showed a normal sinus rhythm with no ST segment elevation or depression noted. <Joe Perdomo - Last Filed: 05/12/23 00:09> Medical Decision Making - Lab Data Result diagrams: 05/11/23 19:26 05/11/23 19:26 <Joe Perdomo - Last Filed: 05/12/23 00:09> - Medical Decision Making Was pt. sent in by a medical professional or institution (, PA, BIZTALK CONSULTANT, urgent care, hospital, or correction...) When possible be specific @ -No Did you speak to anyone other than the patient for history (EMS, parent, family, police, friend...)? What history was obtained from this source @ -No Did you review nursing and triage notes (agree or disagree)? Why? @ -I reviewed and agree with nursing and triage notes Were old charts reviewed (outside hosp., previous admission, EMS record, old EKG, old radiological studies, urgent care reports/EKG's, correction records)? Report findings @ -No old charts were reviewed Differential Diagnosis (chest pain, altered mental status, abdominal pain women, abdominal pain men, vaginal bleeding, weakness, fever, dyspnea, syncope, headache, dizziness, GI bleed, back pain, seizure, CVA, palpatations, mental health)? @ -Pulmonary embolism, ACS, pneumonia, pneumothorax, panic attack EKG interpreted by me (3pts min.). @ -As above X-rays interpreted by me (1pt min.). @ -Chest x-ray was obtained and was interpreted by myself showing no acute process. CT interpreted by me (1pt min.). @ -None done U/S interpreted by me (1pt. min.). @ -None done What testing was considered but not performed or refused? (CT, X-rays, U/S, labs)? Why? @ -None What meds were considered but not given or refused? Why? @ -None Did you discuss the management of the patient with other professionals (professionals i.e. , PA, BIZTALK CONSULTANT, lab, RT, psych nurse, social organization professor, licensed electrician, teacher, dog license officer supervisor, case specialist)? Give summary @ -No Was smoking cessation discussed for >3mins.? @ -No Was critical care preformed (if so, how long)? @ -No Were there social determinants of health that impacted care today? How? (Homelessness, low income, unemployed, alcoholism, drug addiction, transportation, low edu. Level, literacy, decrease access to med. care, intermediate, rehab)? @ -No Was there de-escalation of care discussed even if they declined (Discuss DNR or withdrawal of care, Hospice)? DNR status @ -No What co-morbidities impacted this encounter? (DM, HTN, Smoking, COPD, CAD, Cancer, CVA, ARF, Chemo, Hep., AIDS, mental health diagnosis, sleep apnea, mor bid obesity)? @ -Asthma, anxiety Was patient admitted / discharged? Hospital course, mention meds given and route, prescriptions, significant lab abnormalities, going to OR and other pertinent info. @ -The patient was seen and evaluated in the emergency department. Physical exam, the patient was resting in bed With minor distress secondary to anxiety. Vital signs admission were however stable and within normal limits. Due to the patient's shortness of breath despite having a normal chest exam on auscultation, had full laboratory workup obtained as well as a chest x-ray and EKG. All laboratory workup was within normal limits and due to the patient's anxious presentation, the patient did receive 0.5 mg of Ativan. The patient was allowed to continue to be closely monitored in the emergency department and on reevaluation, the patient stated that "I feel like a full and I just want to go home." The patient stated that she no longer had any pain or anxiety and felt "silly for wasting your time." The patient continued to remain stable without any acute complaints. The patient had no further tachypnea or tachycardia as well as any anxiety. The patient was resting in bed comfortably. The patient was advised to follow-up with her primary care physician for further workup and evaluation and to report back to the emergency department if her symptoms became acutely worse. The patient was agreeable to this and all of her questions were answered. The patient was discharged home in stable condition. Undiagnosed new problem with uncertain prognosis? @ -No Drug Therapy requiring intensive monitoring for toxicity (Heparin, Nitro, Insulin, Cardizem)? @ -No Were any procedures done? @ -No Diagnosis/symptom? @ -Shortness of breath secondary to panic attack, anxiety Acute, or Chronic, or Acute on Chronic? @ -Acute Uncomplicated (without systemic symptoms) or Complicated (systemic symptoms)? @ -Complicated Side effects of treatment? @ -No Exacerbation, Progression, or Severe Exacerbation? @ -No Poses a threat to life or bodily function? How? (Chest pain, USA, NH, pneumonia, PE, COPD, DKA, ARF, appy, cholecystitis, CVA, Diverticulitis, Homicidal, Suicidal, threat to staff... and all critical care pts) @ -No (Joe Perdomo) - Lab Data Lab Results 05/11/23 05/11/23 05/11/23 Range/Units 17:43 19:26 19:26 WBC 7.0 (3.8-10.6) k/uL RBC 5.00 (3.80-5.40) m/uL Hgb 15.6 (11.4-16.0) gm/dL Hct 45.8 (34.0-46.0) % MCV 91.7 (80.0-100.0) fL MCH 31.2 (25.0-35.0) pg MCHC 34.0 (31.0-37.0) g/dL RDW 12.9 (11.5-15.5) % Plt Count 329 (150-450) k/uL MPV 8.3 Neutrophils % 59 % Lymphocytes % 30 % Monocytes % 6 % Eosinophils % 1 % Basophils % 0 % Neutrophils # 4.1 (1.3-7.7) k/uL Lymphocytes # 2.1 (1.0-4.8) k/uL Monocytes # 0.4 (0-1.0) k/uL Eosinophils # 0.1 (0-0.7) k/uL Basophils # 0.0 (0-0.2) k/uL PT 10.5 (9.0-12.0) sec INR 1.0 (<1.2) APTT 25.6 (22.0-30.0) sec D-Dimer 0.21 (<0.60) mg/L FEU Sodium (137-145) mmol/L Potassium (3.5-5.1) mmol/L Chloride (98-107) mmol/L Carbon Dioxide (22-30) mmol/L Anion Gap mmol/L BUN (7-17) mg/dL Creatinine (0.52-1.04) mg/dL Est GFR (CKD-EPI)AfAm (>60 ml/min/1.73 sqM) Est GFR (CKD-EPI)NonAf (>60 ml/min/1.73 sqM) Glucose (74-99) mg/dL POC Glucose (mg/dL) 104 (70-110) mg/dL POC Glu Cloth Dyer ID Belval, Etelvina Calcium (8.4-10.2) mg/dL Magnesium (1.6-2.3) mg/dL Total Bilirubin (0.2-1.3) mg/dL AST (14-36) U/L ALT (4-34) U/L Alkaline Phosphatase (38-126) U/L Troponin I (0.000-0.034) ng/mL NT-Pro-B Natriuret Pep pg/mL Total Protein (6.3-8.2) g/dL Albumin (3.5-5.0) g/dL 05/11/23 05/11/23 05/11/23 Range/Units 19:26 19:26 19:26 WBC (3.8-10.6) k/uL RBC (3.80-5.40) m/uL Hgb (11.4-16.0) gm/dL Hct (34.0-46.0) % MCV (80.0-100.0) fL MCH (25.0-35.0) pg MCHC (31.0-37.0) g/dL RDW (11.5-15.5) % Plt Count (150-450) k/uL MPV Neutrophils % % Lymphocytes % % Monocytes % % Eosinophils % % Basophils % % Neutrophils # (1.3-7.7) k/uL Lymphocytes # (1.0-4.8) k/uL Monocytes # (0-1.0) k/uL Eosinophils # (0-0.7) k/uL Basophils # (0-0.2) k/uL PT (9.0-12.0) sec INR (<1.2) APTT (22.0-30.0) sec D-Dimer (<0.60) mg/L FEU Sodium 141 (137-145) mmol/L Potassium 4.0 (3.5-5.1) mmol/L Chloride 108 H (98-107) mmol/L Carbon Dioxide 19 L (22-30) mmol/L Anion Gap 14 mmol/L BUN 15 (7-17) mg/dL Creatinine 0.68 (0.52-1.04) mg/dL Est GFR (CKD-EPI)AfAm >90 (>60 ml/min/1.73 sqM) Est GFR (CKD-EPI)NonAf >90 (>60 ml/min/1.73 sqM) Glucose 82 (74-99) mg/dL POC Glucose (mg/dL) (70-110) mg/dL POC Glu Cloth Dyer ID Calcium 10.5 H (8.4-10.2) mg/dL Magnesium 2.1 (1.6-2.3) mg/dL Total Bilirubin 0.9 (0.2-1.3) mg/dL AST 35 (14-36) U/L ALT 35 H (4-34) U/L Alkaline Phosphatase 49 (38-126) U/L Troponin I <0.012 (0.000-0.034) ng/mL NT-Pro-B Natriuret Pep 488 pg/mL Total Protein 7.5 (6.3-8.2) g/dL Albumin 4.7 (3.5-5.0) g/dL Disposition <Diane Adams - Last Filed: 05/11/23 17:39> Is patient prescribed a controlled substance at d/c from ED?: No Time of Disposition: 23:00 <Joe Perdomo - Last Filed: 05/12/23 00:09> Clinical Impression: Anxiety, Panic attack Disposition: HOME SELF-CARE Condition: Stable Instructions (If sedation given, give patient instructions): Anxiety (ED), Panic Attack (ED) Referrals: Tomer Kumar DO [Primary Care Provider] - 1-2 days
[2023-05-11 17:42] VITALS: TEMP 97.8
[2023-05-11 17:44] LABS: Glucose,Whole Blood 104 mg/dL (70-110)
--- NOTE | 2023-05-11 18:55 | XR ---
EXAMINATION TYPE: XR chest 2V DATE OF EXAM: 05/11/2023 6:40 PM COMPARISON: Chest radiographs from 07/07/2011 TECHNIQUE: XR chest 2V Frontal and lateral views of the chest. CLINICAL INDICATION:Female, 68 years old with history of Asthma; FINDINGS: Lungs/Pleura: There is no evidence of pleural effusion, focal consolidation, or pneumothorax. Pulmonary vascularity: Unremarkable. Heart/mediastinum: Cardiomediastinal silhouette is unremarkable. Musculoskeletal: No acute osseous pathology. IMPRESSION: No acute cardiopulmonary disease/process.
[2023-05-11] MEDS ORDERED: LORazepam 2 MG/ML INJ IV STA (19:54)
[2023-05-11 20:15] LABS: Basophils % (A) 0 %; Eosinophils # (A) 0.1 k/uL (0-0.7); Eosinophils % (A) 1 %; HCT 45.8 % (34.0-46.0); HGB 15.6 gm/dL (11.4-16.0); Lymphocytes # (A) 2.1 k/uL (1.0-4.8); Lymphocytes % (A) 30 %; MCH 31.2 pg (25.0-35.0); MCV 91.7 fL (80.0-100.0); Mean Platelet Volume 8.3; Monocytes # (A) 0.4 k/uL (0-1.0); Monocytes % (A) 6 %; Neutrophils # (A) 4.1 k/uL (1.3-7.7); Neutrophils % (A) 59 %; Platelet Count 329 k/uL (150-450); RDW 12.9 % (11.5-15.5)
[2023-05-11 20:22] LABS: ALT 35 U/L (4-34); AST 35 U/L (14-36); African American GFR (CKD) >90 (>60 ml/min/1.73 sqM); Albumin 4.7 g/dL (3.5-5.0); Alkaline Phosphatase 49 U/L (38-126); Anion Gap 14 mmol/L; Blood Urea Nitrogen 15 mg/dL (7-17); Calcium 10.5 mg/dL (8.4-10.2); Carbon Dioxide 19 mmol/L (22-30); Chloride 108 mmol/L (98-107); Glucose 82 mg/dL (74-99); Magnesium 2.1 mg/dL (1.6-2.3); Non-African American GFR(CKD) >90 (>60 ml/min/1.73 sqM); Sodium 141 mmol/L (137-145); Total Bilirubin 0.9 mg/dL (0.2-1.3); Total Protein 7.5 g/dL (6.3-8.2)
[2023-05-11 20:23] LABS: Partial Thromboplastin Time 25.6 sec (22.0-30.0); Prothrombin Time 10.5 sec (9.0-12.0)
[2023-05-11 23:56] VITALS: BP 136/98; PULSE 80; RESP 18
== END 2023-05-11 23:56 | disposition home or self-care (01) ==
LOC: EC 17:31
DX: F41.0 Panic disorder [episodic paroxysmal anxiety] (principal); J45.909 Unspecified asthma, uncomplicated; I10 Essential (primary) hypertension; Z79.899 Other long term (current) drug therapy; Z88.5 Allergy status to narcotic agent; Z91.040 Latex allergy status; Z88.8 Allergy status to other drugs, medicaments and biological substances
CPT/HCPCS: 36415; 93005; 85379; 83880; 80053; 83735; 84484; 85025; 85610; 85730; 71046; 99285; 96374; J2060

== ENCOUNTER → 2023-09-08 | Outpatient (CLI) | payer MEDICARE ==
[2023-09-08 22:30] LABS: Alternaria alternata IgE <0.10 kU/L; Aspergillus fumagatus IgE <0.10 kU/L; Birch IgE <0.10 kU/L; Cat Epith & Dander IgE <0.10 kU/L; Cladosporian herbarum IgE <0.10 kU/L; Clam IgE <0.10 kU/L; Cockroach IgE <0.10 kU/L; Codfish IgE <0.10 kU/L; Dermato. farinae IgE <0.10 kU/L; Dog Dander IgE <0.10 kU/L; Egg White IgE <0.10 kU/L; Elm IgE <0.10 kU/L; Maple (Box Elder) IgE <0.10 kU/L; Oak IgE <0.10 kU/L; Peanut IgE <0.10 kU/L; Ragweed,Common IgE <0.10 kU/L; Red Top (Bentgrass) IgE <0.10 kU/L; Scallop IgE <0.10 kU/L; Shrimp IgE <0.10 kU/L; Soybean IgE <0.10 kU/L; Walnut IgE (Food) <0.10 kU/L
== END | disposition home or self-care (01) ==
LOC: LABWHC1 14:36
PROVIDERS: ATTEND Internal Medicine Critical Care Medicine
DX: J45.909 Unspecified asthma, uncomplicated (principal)
CPT/HCPCS: 36415; 82785; 86003

== ENCOUNTER → 2023-10-28 | Outpatient (CLI) | payer MEDICARE ==
--- NOTE | 2023-11-03 19:07 | MM ---
Reason for Exam: Screening (asymptomatic). Last mammogram was performed 1 year(s) and 7 month(s) ago. Patient History: Menarche at age 17. First Full-Term at age 29. Postmenopausal. 1989, Bilateral Benign Lumpectomy. Sister had breast cancer, age 63. Risk Values: Kiersten 5 year model risk: 3.0%. NCI Lifetime model risk: 10.2%. Prior Study Comparison: 01/20/2020 Bilateral Screening Mammogram, [facility]. 01/27/2020 Bilateral Diagnostic Mammogram, [facility]. 03/25/2022 Bilateral MG 3D diag mammo w/cad EBER, [facility]. Tissue Density: The breast tissue is heterogeneously dense. This may lower the sensitivity of mammography. Findings: Analyzed By CAD. Unchanged grouped calcifications in the right breast. There is no suspicious group of microcalcifications or new suspicious mass in either breast. Overall Assessment: Benign, BI-RAD 2 Management: Screening Mammogram of both breasts in 1 year. See note below in regards to patient's increased 5 year Kiersten score. Patient should continue monthly self-breast exams. A clinical breast exam by your physician is recommended on an annual basis. This exam should not preclude additional follow-up of suspicious palpable abnormalities. Note on Kiersten scores and lifetime risk: 1. A Kiersten score greater than 3% is considered moderate risk. If this is the case, consider specialist referral to assess eligibility for a risk reducing agent. 2. If overall lifetime risk for the development of breast cancer is 20% or higher, the patient may qualify for future screening with alternating mammogram and breast MRI. Electronically signed and approved by: Lavern Kilgore M.D. Radiologist
== END | disposition home or self-care (01) ==
LOC: RADMAMWWP 14:56
PROVIDERS: ATTEND Family Medicine
DX: Z12.31 Encounter for screening mammogram for malignant neoplasm of breast (principal); Z78.0 Asymptomatic menopausal state; Z80.3 Family history of malignant neoplasm of breast
CPT/HCPCS: 77063; 77067

== ENCOUNTER 2023-11-25 12:21 | Emergency (ER) | payer MEDICARE ==
[2023-11-25] MEDS ORDERED: LORazepam 2 MG/ML INJ IV STA (12:38)
[2023-11-25] MEDS ORDERED: IPRATROPIUM-ALBUTEROL 3 ML NEB INHALATION STA (12:38)
--- NOTE | 2023-11-25 12:51 | ED ---
General Adult HPI - General Chief complaint: Shortness of Breath Stated complaint: Asthma & Panic Attack Time Seen by Provider: 11/25/23 12:29 Source: patient Mode of arrival: wheelchair Limitations: no limitations - History of Present Illness Initial comments: Dictation was produced using [employer] dictation software. please excuse any grammatical, word or spelling errors. Chief Complaint: 68-year-old female with past medical history of asthma hypertension presents to the ER for dyspnea History of Present Illness: 68-year-old female she has past medical history of asthma. She states she woke up feeling fine and all of a sudden became anxious. She was seen at station [facility] office. She is monitored at the pulmonology office for couple hours. Ultimately she was sent to the ER for shortness of breath. Patient states that she has some tightness in her chest patient does have a history of anxiety. Patient's not sure if she is having respiratory failure or an anxiety reaction. She complains of tingling to her arms and legs The ROS documented in this emergency department record has been reviewed and confirmed by me. Those systems with pertinent positive or negative responses have been documented in the HPI. All other systems are other negative and/or noncontributory. - Related Data Home Medications Medication Instructions Recorded Confirmed Levalbuterol Hfa Inhaler [Xopenex 1 - 2 puff INHALATION RT-Q4H PRN 06/20/14 11/25/23 Hfa Inhaler] Levocetirizine Dihydrochloride 5 mg PO HS 06/20/14 11/25/23 [Xyzal] Levothyroxine Sodium [Synthroid] 100 mcg PO DAILY 06/20/14 11/25/23 Montelukast [Singulair] 10 mg PO HS 12/11/17 11/25/23 Acyclovir [Zovirax] 400 mg PO BID 11/25/23 11/25/23 Azithromycin [Zithromax] 500 mg PO DIRECTED 11/25/23 11/25/23 Calcium Carbonate [Calcium] 600 mg PO DAILY 11/25/23 11/25/23 Cholecalciferol [Vitamin D3 (25 50 mcg PO DAILY 11/25/23 11/25/23 Mcg = 1000 Iu)] Fluticasone/Umeclidin/Vilanter 1 puff INHALATION RT-DAILY 11/25/23 11/25/23 [Trelegy Ellipta 200-62.5-25] LORazepam [Ativan] 0.5 mg PO BID PRN 11/25/23 11/25/23 Magnesium Oxide [Magnesium] 500 mg PO DAILY 11/25/23 11/25/23 Zinc Gluconate [Zinc] 50 mg PO DAILY 11/25/23 11/25/23 atenoloL [Tenormin] 50 mg PO HS 11/25/23 11/25/23 predniSONE See Taper PO DIRECTED 11/25/23 11/25/23 traMADol HCL 50 - 100 mg PO Q6H PRN 11/25/23 11/25/23 Allergies Allergy/AdvReac Type Severity Reaction Status Date / Time gentamicin [Gentamicin] Allergy Rash/Hives Verified 11/25/23 13:47 latex Allergy Rash/Hives Verified 11/25/23 13:47 codeine AdvReac Vomiting Verified 11/25/23 13:47 Review of Systems ROS Statement: Those systems with pertinent positive or pertinent negative responses have been documented in the HPI. ROS Other: All systems not noted in ROS Statement are negative. Past Medical History Past Medical History: Asthma, Hypertension Additional Past Medical History / Comment(s): hypothyroid, migraines History of Any Multi-Drug Resistant Organisms: None Reported Past Surgical History: Tonsillectomy, Tubal Ligation Additional Past Surgical History / Comment(s): lumpectomy Past Anesthesia/Blood Transfusion Reactions: Family History of Problems w/ A nesthesia, Motion Sickness, Postoperative Nausea & Vomiting (PONV) Additional Past Anesthesia/Blood Transfusion Reaction / Comment(s): states mothers heart stopped. Past Psychological History: No Psychological Hx Reported Past Alcohol Use History: Occasional Past Drug Use History: None Reported - Past Family History Sister(s) Family Medical History: Cancer Additional Family Medical History / Comment(s): lung cancer General Exam - General Exam Comments Initial Comments: PHYSICAL EXAM: General Impression: Alert and oriented x3, anxious, hyperventilating HEENT: Normocephalic atraumatic, extra-ocular movements intact, pupils equal and reactive to light bilaterally, mucous membranes moist. Cardiovascular: Heart regular rate and rhythm Chest: Tachypneic Abdomen: abdomen soft, non-tender, non-distended, no organomegaly Musculoskeletal: Pulses present and equal in all extremities, no peripheral edema Motor: no focal deficits noted Neurological: CN II-XII grossly intact, no focal motor or sensory deficits noted Skin: Intact with no visualized rashes Psych: anxious Limitations: no limitations Course Vital Signs 11/25/23 11/25/23 11/25/23 12:23 12:40 12:50 Temperature 97.6 F Pulse Rate 66 97 98 Respiratory 18 Rate Blood Pressure 136/72 O2 Sat by Pulse 86 L Oximetry 11/25/23 11/25/23 11/25/23 12:51 14:00 14:48 Temperature 98.3 F Pulse Rate 75 73 Respiratory 26 H 20 18 Rate Blood Pressure 116/65 119/76 O2 Sat by Pulse 100 97 Oximetry EKG Findings - EKG Comments: EKG Findings:: My EKG interpretation: Ventricular rate 69, sinus rhythm,. 150, QRS 86, QTC 417. No [place] prolongation, no QTC prolongation, no ST or T-wave changes noted. Overall, this EKG is unremarkable Medical Decision Making - Medical Decision Making Was pt. sent in by a medical professional or institution (, PA, CHIEF VENDOR QUALITY, urgent care, hospital, or residential...) When possible be specific @ -No Did you speak to anyone other than the patient for history (EMS, parent, family, police, friend...)? What history was obtained from this source @ -No Did you review nursing and triage notes (agree or disagree)? Why? @ -I reviewed and agree with nursing and triage notes Were old charts reviewed (outside hosp., previous admission, EMS record, old EKG, old radiological studies, urgent care reports/EKG's, residential records)? Report findings @ -No old charts were reviewed Differential Diagnosis (chest pain, altered mental status, abdominal pain women, abdominal pain men, vaginal bleeding, musculoskeletal, weakness, fever, dyspn ea, syncope, headache, dizziness, GI bleed, back pain, seizure, CVA, palpatations, mental health)? @ -Differential Dyspnea: Coronary syndrome, arrhythmia, tamponade, asthma, COPD, pulmonary embolism, pneumonia, pneumothorax, pulmonary effusion, anaphylaxis, diabetic ketoacidosis, flailed chest, pulmonary contusion, diaphragmatic rupture, anemia, neuromuscular, this is not meant to be an all-inclusive list. EKG interpreted by me (3pts min.). @ -See above X-rays interpreted by me (1pt min.). @ -Chest x-ray shows no acute processes CT interpreted by me (1pt min.). @ -None done U/S interpreted by me (1pt. min.). @ -None done What testing was considered but not performed or refused? (CT, X-rays, U/S, la bs)? Why? @ -None What meds were considered but not given or refused? Why? @ -None Did you discuss the management of the patient with other professionals (professionals i.e. , PA, CHIEF VENDOR QUALITY, lab, RT, psych nurse, social media marketer, lane attendant, teacher, community service officer coordinator, pillowcase cutter)? Give summary @ -No Was smoking cessation discussed for >3mins.? @ -No Was critical care preformed (if so, how long)? @ -No Were there social determinants of health that impacted care today? How? (Homelessness, low income, unemployed, alcoholism, drug addiction, transportation, low edu. Level, literacy, decrease access to med. care, group home, rehab)? @ -No Was there de-escalation of care discussed even if they declined (Discuss DNR or withdrawal of care, Hospice)? DNR status @ -No What co-morbidities impacted this encounter? (DM, HTN, Smoking, COPD, CAD, Cancer, CVA, ARF, Chemo, Hep., AIDS, mental health diagnosis, sleep apnea, morbid obesity)? @ -None Was patient admitted / discharged? Hospital course, mention meds given and route, prescriptions, significant lab abnormalities, going to OR and other pertinent info. @ -68-year-old female presents to the emergency department for acute dyspnea. Vital signs upon arrival shows hypoxia 86% on room air, rest of vital signs within acceptable limits. Repeat oxygen level was normal at the bedside. It appears to be very anxious. Laboratory evaluation obtained. CBC, coag panel metabolic panel within acceptable limits. She does have a troponin of 4.0 initially. He is given IV fluids and anxiolytic medications. She was observed in emergency department for couple hours. All testing negative. Repeat lactic acid is normal. Patient ambulatory at baseline. Chest x-ray is nonacute. This point clinical presentation consistent with anxiety reaction. Patient discharged advised follow-up with primary care doctor. Undiagnosed new problem with uncertain prognosis? @ -No Drug Therapy requiring intensive monitoring for toxicity (Heparin, Nitro, Insulin, Cardizem)? @ -No Were any procedures done? @ -No Diagnosis/symptom? Acute, or Chronic, or Acute on Chronic? Uncomplicated (without systemic symptoms) or Complicated (systemic symptoms)? @ -Anxiety reaction complicated by respiratory distress Side effects of treatment? @ -No Exacerbation, Progression, or Severe Exacerbation? @ -No Poses a threat to life or bodily function? How? (Chest pain, [place], [place], pneumonia, PE, COPD, DKA, ARF, appy, cholecystitis, CVA, Diverticulitis, Homicidal, Suicidal, threat to staff... and all critical care pts) @ -No - Lab Data Result diagrams: 11/25/23 12:46 11/25/23 12:46 Lab Results 11/25/23 11/25/23 11/25/23 Range/Units 12:46 12:46 12:46 WBC 10.8 H (3.8-10.6) k/uL RBC 5.41 H (3.80-5.40) m/uL Hgb 17.1 H (11.4-16.0) gm/dL Hct 50.6 H (34.0-46.0) % MCV 93.6 (80.0-100.0) fL MCH 31.6 (25.0-35.0) pg MCHC 33.8 (31.0-37.0) g/dL RDW 12.9 (11.5-15.5) % Plt Count 389 (150-450) k/uL MPV 7.8 Neutrophils % 56 % Lymphocytes % 32 % Monocytes % 7 % Eosinophils % 1 % Basophils % 1 % Neutrophils # 6.0 (1.3-7.7) k/uL Lymphocytes # 3.4 (1.0-4.8) k/uL Monocytes # 0.7 (0-1.0) k/uL Eosinophils # 0.1 (0-0.7) k/uL Basophils # 0.1 (0-0.2) k/uL PT 10.8 (10.0-12.5) sec INR 1.0 (<1.2) APTT 26.4 (22.0-30.0) sec D-Dimer 0.30 (<0.60) mg/L FEU Sodium 140 (137-145) mmol/L Potassium 4.3 (3.5-5.1) mmol/L Chloride 106 (98-107) mmol/L Carbon Dioxide 22 (22-30) mmol/L Anion Gap 12 mmol/L BUN 20 H (7-17) mg/dL Creatinine 0.81 (0.52-1.04) mg/dL Est GFR (CKD-EPI)AfAm 88 (>60 ml/min/1.73 sqM) Est GFR (CKD-EPI)NonAf 76 (>60 ml/min/1.73 sqM) Glucose 75 (74-99) mg/dL Plasma Lactic Acid Ezequiel (0.7-2.0) mmol/L Calcium 11.0 H (8.4-10.2) mg/dL Magnesium 2.2 (1.6-2.3) mg/dL Troponin I (0.000-0.034) ng/mL Influenza Type A (PCR) (Not Detectd) Influenza Type B (PCR) (Not Detectd) RSV (PCR) (Not Detectd) SARS-CoV-2 (PCR) (Not Detectd) 11/25/23 11/25/23 11/25/23 Range/Units 12:46 12:46 12:46 WBC (3.8-10.6) k/uL RBC (3.80-5.40) m/uL Hgb (11.4-16.0) gm/dL Hct (34.0-46.0) % MCV (80.0-100.0) fL MCH (25.0-35.0) pg MCHC (31.0-37.0) g/dL RDW (11.5-15.5) % Plt Count (150-450) k/uL MPV Neutrophils % % Lymphocytes % % Monocytes % % Eosinophils % % Basophils % % Neutrophils # (1.3-7.7) k/uL Lymphocytes # (1.0-4.8) k/uL Monocytes # (0-1.0) k/uL Eosinophils # (0-0.7) k/uL Basophils # (0-0.2) k/uL PT (10.0-12.5) sec INR (<1.2) APTT (22.0-30.0) sec D-Dimer (<0.60) mg/L FEU Sodium (137-145) mmol/L Potassium (3.5-5.1) mmol/L Chloride (98-107) mmol/L Carbon Dioxide (22-30) mmol/L Anion Gap mmol/L BUN (7-17) mg/dL Creatinine (0.52-1.04) mg/dL Est GFR (CKD-EPI)AfAm (>60 ml/min/1.73 sqM) Est GFR (CKD-EPI)NonAf (>60 ml/min/1.73 sqM) Glucose (74-99) mg/dL Plasma Lactic Acid Ezequiel 4.0 H* (0.7-2.0) mmol/L Calcium (8.4-10.2) mg/dL Magnesium (1.6-2.3) mg/dL Troponin I <0.012 (0.000-0.034) ng/mL Influenza Type A (PCR) Not Detected (Not Detectd) Influenza Type B (PCR) Not Detected (Not Detectd) RSV (PCR) Not Detected (Not Detectd) SARS-CoV-2 (PCR) Not Detected (Not Detectd) 11/25/23 Range/Units 14:32 WBC (3.8-10.6) k/uL RBC (3.80-5.40) m/uL Hgb (11.4-16.0) gm/dL Hct (34.0-46.0) % MCV (80.0-100.0) fL MCH (25.0-35.0) pg MCHC (31.0-37.0) g/dL RDW (11.5-15.5) % Plt Count (150-450) k/uL MPV Neutrophils % % Lymphocytes % % Monocytes % % Eosinophils % % Basophils % % Neutrophils # (1.3-7.7) k/uL Lymphocytes # (1.0-4.8) k/uL Monocytes # (0-1.0) k/uL Eosinophils # (0-0.7) k/uL Basophils # (0-0.2) k/uL PT (10.0-12.5) sec INR (<1.2) APTT (22.0-30.0) sec D-Dimer (<0.60) mg/L FEU Sodium (137-145) mmol/L Potassium (3.5-5.1) mmol/L Chloride (98-107) mmol/L Carbon Dioxide (22-30) mmol/L Anion Gap mmol/L BUN (7-17) mg/dL Creatinine (0.52-1.04) mg/dL Est GFR (CKD-EPI)AfAm (>60 ml/min/1.73 sqM) Est GFR (CKD-EPI)NonAf (>60 ml/min/1.73 sqM) Glucose (74-99) mg/dL Plasma Lactic Acid Ezequiel 1.4 (0.7-2.0) mmol/L Calcium (8.4-10.2) mg/dL Magnesium (1.6-2.3) mg/dL Troponin I (0.000-0.034) ng/mL Influenza Type A (PCR) (Not Detectd) Influenza Type B (PCR) (Not Detectd) RSV (PCR) (Not Detectd) SARS-CoV-2 (PCR) (Not Detectd) Disposition Clinical Impression: Anxiety reaction Disposition: HOME SELF-CARE Condition: Good Instructions (If sedation given, give patient instructions): Anxiety (ED) Is patient prescribed a controlled substance at d/c from ED?: No Referrals: Tomer Kumar DO [Primary Care Provider] - 1-2 days Time of Disposition: 14:52
[2023-11-25 13:24] LABS: Basophils # (A) 0.1 k/uL (0-0.2); Basophils % (A) 1 %; Eosinophils # (A) 0.1 k/uL (0-0.7); Eosinophils % (A) 1 %; HCT 50.6 % (34.0-46.0); HGB 17.1 gm/dL (11.4-16.0); Lymphocytes # (A) 3.4 k/uL (1.0-4.8); Lymphocytes % (A) 32 %; MCH 31.6 pg (25.0-35.0); MCHC 33.8 g/dL (31.0-37.0); MCV 93.6 fL (80.0-100.0); Mean Platelet Volume 7.8; Monocytes # (A) 0.7 k/uL (0-1.0); Monocytes % (A) 7 %; Neutrophils % (A) 56 %; Platelet Count 389 k/uL (150-450); RBC 5.41 m/uL (3.80-5.40); RDW 12.9 % (11.5-15.5); WBC 10.8 k/uL (3.8-10.6)
[2023-11-25 13:25] LABS: Partial Thromboplastin Time 26.4 sec (22.0-30.0); Prothrombin Time 10.8 sec (10.0-12.5)
--- NOTE | 2023-11-25 13:31 | XR ---
EXAMINATION TYPE: XR chest 2V DATE OF EXAM: 11/25/2023 1:18 PM CLINICAL INDICATION:Female, 68 years old with history of dyspnea; [facility] COMPARISON: Chest radiographs from 05/11/2023 TECHNIQUE: XR chest 2V Frontal and lateral views of the chest. FINDINGS: Lungs/Pleura: There is no evidence of pleural effusion, focal consolidation, or pneumothorax. Pulmonary vascularity: Unremarkable. Heart/mediastinum: Cardiomediastinal silhouette is unremarkable. Musculoskeletal: No acute osseous pathology. Other findings: None IMPRESSION: No acute cardiopulmonary disease/process.
[2023-11-25 13:41] LABS: African American GFR (CKD) 88 (>60 ml/min/1.73 sqM); Anion Gap 12 mmol/L; Blood Urea Nitrogen 20 mg/dL (7-17); Carbon Dioxide 22 mmol/L (22-30); Chloride 106 mmol/L (98-107); Glucose 75 mg/dL (74-99); Magnesium 2.2 mg/dL (1.6-2.3); Non-African American GFR(CKD) 76 (>60 ml/min/1.73 sqM); Potassium 4.3 mmol/L (3.5-5.1); Sodium 140 mmol/L (137-145)
[2023-11-25 14:59] VITALS: BP 119/76; PULSE 73; RESP 18; TEMP 98.3
== END 2023-11-25 15:05 | disposition home or self-care (01) ==
LOC: EC 12:21
DX: F41.1 Generalized anxiety disorder (principal); I10 Essential (primary) hypertension; J45.909 Unspecified asthma, uncomplicated; E03.9 Hypothyroidism, unspecified; Z20.822 Contact with and (suspected) exposure to COVID-19; Z79.890 Hormone replacement therapy; Z79.51 Long term (current) use of inhaled steroids; Z79.899 Other long term (current) drug therapy; Z88.1 Allergy status to other antibiotic agents; Z88.5 Allergy status to narcotic agent; Z91.040 Latex allergy status
CPT/HCPCS: 36415; 94640; 93005; 85379; 80048; 83605; 83735; 84484; 85025; 85610; 85730; 87636; 71046; 99285; 96374; J2060

== ENCOUNTER → 2024-03-18 | Outpatient (CLI) | payer MEDICARE ==
--- NOTE | 2024-03-18 08:48 | MM ---
Reason for Exam: Clinical finding. Last screening mammogram was performed 5 month(s) ago. Indicated Problems: Lump or thickening of the left side for 1 Week(s). Patient History: Menarche at age 17. First Full-Term at age 29. Postmenopausal. 1989, Bilateral Benign Lumpectomy. Sister had breast cancer, age 63. Risk Values: Kiersten 5 year model risk: 3.1%. NCI Lifetime model risk: 9.8%. Prior Study Comparison: 01/27/2020 Bilateral Diagnostic Mammogram, [facility]. 03/25/2022 Bilateral MG 3D diag mammo w/cad EBER, [facility]. 10/28/2023 Bilateral MG 3D screening mammo w/cad, [facility]. Tissue Density: Left: The breasts are heterogeneously dense, which may obscure small masses. Findings: Analyzed By CAD. Palpable marker along the upper outer quadrant of the left breast. No underlying abnormality is seen. No significant change from prior exams. Overall Assessment: Incomplete: need additional imaging evaluation, BI-RAD 0 Management: Diagnostic Breast Ultrasound of the left breast. Electronically signed and approved by: Lavern Kilgore M.D. Radiologist
--- NOTE | 2024-03-18 13:29 | USB ---
Reason for Exam: Clinical finding. Patient History: Menarche at age 17. First Full-Term at age 29. Postmenopausal. 1989, Bilateral Benign Lumpectomy. Sister had breast cancer, age 63. Risk Values: Kiersten 5 year model risk: 3.1%. NCI Lifetime model risk: 9.8%. Technique: Method: Targeted. Prior Study Comparison: 01/27/2020 Bilateral Diagnostic Mammogram, [facility]. 03/25/2022 Bilateral MG 3D diag mammo w/cad EBER, [facility]. 10/28/2023 Bilateral MG 3D screening mammo w/cad, [facility]. Findings: The area of palpable concern of the left breast, the axilla of the left breast and the retroareolar of the left breast were scanned. Targeted ultrasound left breast 1:00 position including scanning of the subareolar region and axilla. At the 1:00 palpable site, no abnormality is identified. No solid or cystic lesion or axillary lymphadenopathy. Overall Assessment: Negative, BI-RAD 1 Management: Return to routine follow-up (next follow-up: 10/28/2024 for Screening Mammogram) Back on schedule. Further clinical management of any suspicious palpable areas. A clinical breast exam by your physician is recommended on an annual basis and results should be correlated with mammographic findings. This exam should not preclude additional follow-up of suspicious palpable abnormalities. Results were given to the patient verbally at the time of exam. Note on Kiersten scores and lifetime risk: 1. A Kiersten score greater than 3% is considered moderate risk. If this is the case, consider specialist referral to assess eligibility for a risk reducing agent. 2. If overall lifetime risk for the development of breast cancer is 20% or higher, the patient may qualify for future screening with alternating mammogram and breast MRI. Electronically signed and approved by: Lavern Kilgore M.D. Radiologist
== END | disposition home or self-care (01) ==
LOC: RADMAMWWP 08:21
PROVIDERS: ATTEND Family Medicine
DX: R92.332 Mammographic heterogeneous density, left breast (principal); N63.21 Unspecified lump in the left breast, upper outer quadrant; Z78.0 Asymptomatic menopausal state; Z80.3 Family history of malignant neoplasm of breast
CPT/HCPCS: 77065; 76642; G0279; 77061

== ENCOUNTER → 2024-07-18 | Outpatient (CLI) | payer MEDICARE ==
--- NOTE | 2024-07-18 11:58 | XR ---
EXAMINATION TYPE: XR cervical spine comp DATE OF EXAM: 07/18/2024 11:45 AM CLINICAL INDICATION: Female, 69 years old with history of [id number],[id number]; [facility] COMPARISON: 12/03/2018 TECHNIQUE: The cervical spine was imaged in frontal, lateral, odontoid and bilateral oblique. FINDINGS: The osseous structures show normal alignment without evidence of an acute fracture. There are osteoph ytes noted throughout the cervical spine on the anterior and lateral aspects of the vertebral bodies. The intervertebral disk spaces are narrowed at multiple levels. Pedicles are intact. Soft tissues a re within normal limits. The odontoid appears intact. IMPRESSION: 1. No fracture or dislocation. 2. Mild progression of now Moderate degenerative disc disease changes of the cervical spine.
== END | disposition home or self-care (01) ==
LOC: RADXRYALE 11:32
PROVIDERS: ATTEND Family Medicine
DX: M50.321 Other cervical disc degeneration at C4-C5 level (principal); M50.320 Other cervical disc degeneration, mid-cervical region, unspecified level; R20.2 Paresthesia of skin; R51.9 Headache, unspecified
CPT/HCPCS: 72050

== ENCOUNTER → 2024-07-22 | Outpatient (CLI) | payer MEDICARE ==
--- NOTE | 2024-07-22 15:14 | MR ---
EXAMINATION TYPE: MR cervical spine wo con DATE OF EXAM: 07/22/2024 2:44 PM COMPARISON: 12/24/2018 HISTORY: Neck Pain for years Multiplanar MultiSpin echo imaging of the cervical spine was performed. Comparison: none C2-C3: No evidence for degenerative disc disease. No disc bulge/herniation or protrusion. No Canal stenosis. Foramina are patent bilaterally. C3-C4: Moderate disc desiccation with mild posterior disc bulge and mild effacement ventral thecal sa c. No evidence for central stenosis. Visualized left neural foramen is mildly narrowed. C4-C5: Moderate disc desiccation with posterior disc bulge. Mild effacement ventral thecal sac. Borde rline to mild central stenosis suggested. Moderate left foraminal encroachment. C5-C6: Mild to moderate degenerative disc desiccation with posterior disc bulge mild effacement ventr al thecal sac. No evidence for focal herniation or central stenosis. Mild to moderate left-sided fora luis manuel encroachment. C6-C7: Moderate disc desiccation with mild posterior disc bulge. Mild effacement ventral thecal sac. No evidence for herniation or central stenosis. Moderate left foraminal impingement. C7-T1: No evidence for degenerative disc disease. No disc bulge/herniation or protrusion. No Canal stenosis. Foramina are patent bilaterally. Cervical segments are intact. There is normal alignment. Cervical spinal cord is of normal signal. Craniovertebral junction relationships are within normal limits. IMPRESSION: 1. Multilevel degenerative disc disease with multilevel disc bulging and foraminal encroachment. Bord ariel to mild central stenosis redemonstrated at C4-5.
== END | disposition home or self-care (01) ==
LOC: RADMRIMAIN 13:08
PROVIDERS: ATTEND Family Medicine
DX: M48.02 Spinal stenosis, cervical region (principal); M50.321 Other cervical disc degeneration at C4-C5 level; R20.2 Paresthesia of skin
CPT/HCPCS: 72141

== ENCOUNTER → 2024-08-22 | Outpatient (CLI) | payer MEDICARE ==
--- NOTE | 2024-08-22 14:51 | P.PAINPG ---
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 Pt states pain level is provoked at 8 /10 in intensity, constant, localized in the lower cervical spine, predominantly axial, dull in character w occasional shooting pain towards the shoulders and UEs. Pain is provoked by hyperextension, rotation. Pain is alleviated by medications (Tramadol 50mg #180, Tyl, Ibu), manual massage, repositioning and rest . PMH: OA, Asthma, HTN PSH: Tonsillectomy, Lumpectomy, Tubal Ligation SH: Never smoker, Occ ETOH use, No illicit drug use FH: Sis- Lung CA All: See list Meds: See list REVIEW OF ORGAN SYSTEMS: CONSTITUTIONAL: No fevers or chills. No recent weight loss. NEUROLOGICAL: + numbness and tingling along the distal extremities. No seizure disorders or headaches. MUSCULOSKELETAL: + pain PSYCHIATRIC: Denies current depression or suicidal thoughts. Physical Examinations : Constitutional : Cooperative , not in acute distress . Neurologic : Cranial nerve II to XII intact. No focal neurological deficits. Psychiatric : alert & oriented x 3. Matching mood & appropriate affect. Judgment & insight intact. Musculoskeletal : Cervical Spine Motor strength in the deltoid and biceps: Normal right side. Normal Left side Motor strength biceps and the wrist extensors: Normal right side . Normal left side Motor strength in the triceps muscle: Normal right side. Normal left side Deep tendon reflexes: Normal at the biceps. Normal at Brachioradialis. Normal at triceps Vertebral body tenderness to deep palpation over C6 Cervical facet loading test: positive bilaterally Spurling test: positive bilaterally Neck distraction test: positive bilaterally Ronny sign: positive bilaterally Lumbar spine Motor strength lower extremities ,thigh and legs 5/5 Right side , 5/5 Left side Deep tendon reflexes : Normal Knee Jerk. Normal Ankle Jerk Vertebral body tenderness over Melara Test positive Lumbar facet Loading Test: positive Right / positive Left Range of motion of the lumbar spine Flexion 30 degrees, extension 10 degrees Straight Leg Raise test: Left/ Right positive at degrees Nannette test: positive right / positive left. Severe tenderness over the Sacroiliac joint on the Right / Left sides Gaenslen test: positive bilaterally Seated flexion test: positive bilaterally. Sacral spine : Severe tenderness over the Sacroiliac joint: right side / left side Range of motion: Flexion of the lumbar spine <60 degrees Range of motion: Extension of the lumbar spine <20 degrees Gaenslen's Test positive Nannette test: positive right side / left side Thigh Thrust Test Sacral Thrust Test Imaging: MRI non contrast cervical spine from 07/22/24 reviewed Assessment/ Plan : Cervical radiculopathy Recommendation of PT x 6 wks M54.12. All questions answered. I have spent greater than 30 minutes on patient care today. Dr Hennessy was available by phone for the evaluation of this patient. The time was used to review the medical records including relevant urine studies and Prescription history (MAPs), review of the available imaging, evaluation and examination of the patient, coordination of care with the medical staff and if applicable referring physicians, as well as creation of the medical record PQRS Narrative: Smoking Status Never smoker Home Medications: Ambulatory Orders Levalbuterol Hfa Inhaler [Xopenex Hfa Inhaler] 1 - 2 puff INHALATION RT-Q4H PRN 06/20/14 Levothyroxine Sodium [Synthroid] 100 mcg PO DAILY 06/20/14 Montelukast [Singulair] 10 mg PO HS 12/11/17 Calcium Carbonate [Calcium] 600 mg PO DAILY 11/25/23 Fluticasone/Umeclidin/Vilanter [Trelegy Ellipta 200-62.5-25] 1 puff INHALATION RT-DAILY 11/25/23 Zinc Gluconate [Zinc] 50 mg PO DAILY 11/25/23 traMADol HCL 50 - 100 mg PO Q6H PRN 11/25/23 Controlled Substance Measures - Controlled Substance Measures Is patient prescribed a controlled substance at discharge?: No
== END ==
LOC: PNWHC3 10:51
PROVIDERS: ATTEND Specialist
DX: M50.122 Cervical disc disorder at C5-C6 level with radiculopathy (principal); M50.121 Cervical disc disorder at C4-C5 level with radiculopathy; M47.22 Other spondylosis with radiculopathy, cervical region; Z91.040 Latex allergy status; Z88.5 Allergy status to narcotic agent; Z88.8 Allergy status to other drugs, medicaments and biological substances
CPT/HCPCS: 99211

== ENCOUNTER → 2024-10-13 | Outpatient (CLI) | payer MEDICARE ==
[2024-10-13 14:25] VITALS: BP 128/81; PULSE 89; RESP 18; TEMP 97.6
--- NOTE | 2024-10-13 15:24 | P.PAINPG ---
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 Pt states pain level is provoked at 8 /10 in intensity, constant, localized in the upper cervical spine, predominantly axial, sharp in character w occasional shooting pain towards the top of the head. Pain is provoked by hyperextension, rotation. Pain is alleviated by PT x 6 wks which ended in early Oct 2024 (cervical), physician guided home exercise/ stretching regimen daily since Sep 2024 (cervical), medications, topical, manual massage, repositioning and rest . Interventional procedures include Medications include Tramadol 50mg #180, Tyl, Ibu, CBD oil REVIEW OF ORGAN SYSTEMS: CONSTITUTIONAL: No fevers or chills. No recent weight loss. NEUROLOGICAL: + numbness and tingling along the distal extremities. No seizure disorders or headaches. MUSCULOSKELETAL: + pain PSYCHIATRIC: Denies current depression or suicidal thoughts. Physical Examinations : Constitutional : Cooperative , not in acute distress . Neurologic : Cranial nerve II to XII intact. No focal neurological deficits. Psychiatric : alert & oriented x 3. Matching mood & appropriate affect. Judgment & insight intact. Musculoskeletal : +BL NAYAN TTP Cervical Spine Motor strength in the deltoid and biceps: Normal right side. Normal Left side Motor strength biceps and the wrist extensors: Normal right side . Normal left side Motor strength in the triceps muscle: Normal right side. Normal left side Deep tendon reflexes: Normal at the biceps. Normal at Brachioradialis. Normal at triceps Vertebral body tenderness to deep palpation over C6 Cervical facet loading test: positive bilaterally Spurling test: positive bilaterally Neck distraction test: positive bilaterally Ronny sign: positive bilaterally Lumbar spine Motor strength lower extremities ,thigh and legs 5/5 Right side , 5/5 Left side Deep tendon reflexes : Normal Knee Jerk. Normal Ankle Jerk Vertebral body tenderness over Melara Test positive Lumbar facet Loading Test: positive Right / positive Left Range of motion of the lumbar spine Flexion 30 degrees, extension 10 degrees Straight Leg Raise test: Left/ Right positive at degrees Nannette test: positive right / positive left. Severe tenderness over the Sacroiliac joint on the Right / Left sides Gaenslen test: positive bilaterally Seated flexion test: positive bilaterally. Sacral spine : Severe tenderness over the Sacroiliac joint: right side / left side Range of motion: Flexion of the lumbar spine <60 degrees Range of motion: Extension of the lumbar spine <20 degrees Gaenslen's Test positive Nannette test: positive right side / left side Thigh Thrust Test Sacral Thrust Test Imaging: MRI non contrast cervical spine from 07/22/[address] with / without contrast brain from 11/11/21 reviewed Assessment/ Plan : Cervical radiculopathy, Occipital Neuralgia, Cervicogenic OTOOLE Recommendation of VALERY NAYAN #1. Risks, benefits of procedure discussed and pt verbalized understanding. Protocol for discontinuation/ continuation of medications isaias procedure discussed. All questions answered. I have spent greater than 30 minutes on patient care today. Dr Hennessy was available by phone for the evaluation of this patient. The time was used to review the medical records including relevant urine studies and Prescription history (MAPs), review of the available imaging, evaluation and examination of the patient, coordination of care with the medical staff and if applicable referring physicians, as well as creation of the medical record PQRS Narrative: Smoking Status Never smoker Hx Alcohol Use (MH) No Home Medications: Ambulatory Orders Levalbuterol Hfa Inhaler [Xopenex Hfa Inhaler] 1 - 2 puff INHALATION RT-Q4H PRN 06/20/14 Levothyroxine Sodium [Synthroid] 100 mcg PO DAILY 06/20/14 Montelukast [Singulair] 10 mg PO HS 12/11/17 Calcium Carbonate [Calcium] 600 mg PO DAILY 11/25/23 Fluticasone/Umeclidin/Vilanter [Trelegy Ellipta 200-62.5-25] 1 puff INHALATION RT-DAILY 11/25/23 Zinc Gluconate [Zinc] 50 mg PO DAILY 11/25/23 traMADol HCL 50 - 100 mg PO Q6H PRN 11/25/23 Controlled Substance Measures - Controlled Substance Measures Is patient prescribed a controlled substance at discharge?: No
== END ==
LOC: PNWHC3 13:13
PROVIDERS: ATTEND Specialist
DX: M54.12 Radiculopathy, cervical region (principal); G44.86 Cervicogenic headache; M54.81 Occipital neuralgia; Z88.5 Allergy status to narcotic agent; Z88.1 Allergy status to other antibiotic agents; Z91.040 Latex allergy status
CPT/HCPCS: 99211

== ENCOUNTER 2024-10-19 08:21 | Day surgery (SDC) | payer MEDICARE ==
[2024-10-19 08:57] VITALS: TEMP 97.8
[2024-10-19] MEDS: LACTATED RINGERS 1,000 ML IV SCH (09:02)
[2024-10-19] MEDS: IV FLUID CONTINUATION 1,000 ML IV ONE (09:02)
[2024-10-19] MEDS ORDERED: PROPOFOL 10 MG/ML 20 ML VIAL IV ONE (09:22)
--- NOTE | 2024-10-19 09:39 | P.PCN ---
Date of Procedure: 10/19/24 Procedure(s) Performed: BRIEF HISTORY: Patient is a 69-year-old pleasant white female scheduled for an elective colonoscopy as a part of screening for colon cancer. PROCEDURE PERFORMED: Colonoscopy with biopsy and cold snare polypectomy. PREOPERATIVE DIAGNOSIS: Screening for colon cancer. IV sedation per Anesthesia. PROCEDURE: After informed consent was obtained, the patient, was brought into the endoscopy unit. IV sedation was administered by Anesthesia under continuous monitoring. Digital rectal examination was normal. Initially the Olympus CF-160 flexible video colonoscope was then inserted in the rectum, gradually advanced into the cecum without any difficulty. Careful examination was performed as the scope was gradually being withdrawn. Ileocecal valve and the appendiceal orifice were visualized and appeared normal. Prep was excellent. Mucosa of the cecum, ascending colon, normal. Hepatic flexure there was a 5 mm polyp that was removed by cold biopsy.. In the descending colon there was a 7 mm polyp removed by snare polypectomy. Rest of the transverse colon, descending colon, sigmoid colon, and rectum appeared normal. Retroflexion was performed in the rectum and no lesions were seen. The patient tolerated the procedure well. IMPRESSION: 4 mm hepatic rectal polyp status post cold biopsy 7 mm descending colon polyp status post cold snare polypectomy RECOMMENDATIONS: Findings of this examination were discussed with the patient as well as her family. She was advised to follow-up with the biopsy results. If the biopsy reveals adenoma she can have repeat colonoscopy in 5 years.
[2024-10-19 10:02] VITALS: BP 133/79; PULSE 71; RESP 16
== END 2024-10-19 10:27 | disposition home or self-care (01) ==
LOC: ORWHC2ENDO 08:21
PROVIDERS: ATTEND Internal Medicine Gastroenterology
DX: Z12.11 Encounter for screening for malignant neoplasm of colon (principal); D12.3 Benign neoplasm of transverse colon; K62.1 Rectal polyp; J45.909 Unspecified asthma, uncomplicated; G43.909 Migraine, unspecified, not intractable, without status migrainosus; E07.9 Disorder of thyroid, unspecified; L23.1 Allergic contact dermatitis due to adhesives; Z88.5 Allergy status to narcotic agent; Z90.89 Acquired absence of other organs; Z88.1 Allergy status to other antibiotic agents; Z91.040 Latex allergy status; Z79.890 Hormone replacement therapy; Z79.899 Other long term (current) drug therapy; Z79.891 Long term (current) use of opiate analgesic; Z79.51 Long term (current) use of inhaled steroids
CPT/HCPCS: 45380; 45385; J2704; 88305

== ENCOUNTER 2024-11-11 09:35 | Day surgery (SDC) | payer MEDICARE ==
[~2024-11-11 09:35] MED LIST changes: +LACTATED RINGERS 1,000 ML IV SCH; -LIDOCAINE 1% 20 ML VIAL (10MG/ML) FOR IV START INTRADERMA PRN; -MIDAZOLAM (PF) 2 MG/2 ML VIAL IV PRN
[2024-11-11 10:28] VITALS: TEMP 97.6
[2024-11-11 10:44] LABS: Glucose,Whole Blood 96 mg/dL (70-110)
[2024-11-11] MEDS ORDERED: methylPREDNISolone ACETATE 40 MG/ML 1 ML VIAL ONE (10:54)
[2024-11-11] MEDS ORDERED: ROPIVACAINE 5MG/ML 20ML VIAL ONE (10:54)
--- NOTE | 2024-11-11 11:01 | P.PCN ---
Date of Procedure: 11/11/24 Procedure(s) Performed: Preoperative diagnoses= 1- Greater occipital neuralgia. 2-cervicogenic headache Postoperative diagnoses= 1-greater occipital neuralgia. 2-cervicogenic headache Procedure= Bilateral Greater occipital nerve block Anesthesia= none . Estimated blood loss=minimal. Procedure indication= the patient had a history of severe chronic neck pain ,and headache, diagnosed with occipital neuralgia exam was positive for severe tenderness over the occipital nerve bilaterally, she will be a good candidate occipital nerve block, patient failed conservative management Procedure description= the patient was seen and identified in the preoperative holding area, risks and benefits and alternative of the procedure and possible complications discussed with the patient, and he agreed with the preceding, patient signed the consent, an IV was started, and vital signs were monitored and were stable throughout the procedure, patient was placed in the sitting position or table and the neck area was prepped and draped with a sterile fashion, vital signs were closely monitored during the procedure, 25-gauge needle advanced 1 inch lateral to the occipital protuberance on the right side, at the location of the right occipital nerve , then after negative aspiration for heme and CSF and there was no paresthesia during the injection, 6 ml of Robivacaine 0.5% and 40 mg of Depo-Medrol injected after negative aspiration, the needle removed, and the entire same procedure was repeated for the left Greater occipital nerve. Patient tolerated the procedure well without any complication, The patient returned to supine position after the back was cleaned and a Band- Aid applied, the patient transported to recovery room in stable condition and he was monitored for 30 minutes before he was discharged home and then patient was reexamined before going home and patient was discharged in stable condition and patient will follow up with the pain clinic in a few weeks.
[2024-11-11 11:12] VITALS: RESP 18
[2024-11-11 11:36] VITALS: BP 132/74; PULSE 79
== END 2024-11-11 11:38 | disposition home or self-care (01) ==
LOC: ORPAIN 09:35
PROVIDERS: ATTEND Specialist
DX: M54.81 Occipital neuralgia (principal); G44.86 Cervicogenic headache; Z88.5 Allergy status to narcotic agent; Z91.040 Latex allergy status; Z88.1 Allergy status to other antibiotic agents; Z88.8 Allergy status to other drugs, medicaments and biological substances; Z79.84 Long term (current) use of oral hypoglycemic drugs; Z79.899 Other long term (current) drug therapy
CPT/HCPCS: 64405; J2795; J1010

== ENCOUNTER → 2024-11-30 | Outpatient (CLI) | payer MEDICARE ==
[2024-11-30 14:01] VITALS: BP 136/78; PULSE 58; RESP 19; TEMP 97.5
--- NOTE | 2024-11-30 16:43 | P.PAINPG ---
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 Pt states she experienced 0 % pain relief s/p procedure. Pt states pain level is provoked at 8 /10 in intensity, constant, localized in the upper cervical spine, predominantly axial, sharp in character w occasional shooting pain towards the top of the head. Pain is provoked by hyperextension, rotation. Pain is alleviated by PT x 6 wks which ended in early Oct 2024 (cervical), physician guided home exercise/ stretching regimen daily since Sep 2024 (cervical), medications, topical, manual massage, repositioning and rest . Interventional procedures include BL NAYAN x1 Medications include Tramadol 50mg #180, Tyl, Ibu, CBD oil REVIEW OF ORGAN SYSTEMS: CONSTITUTIONAL: No fevers or chills. No recent weight loss. NEUROLOGICAL: + numbness and tingling along the distal extremities. No seizure disorders or headaches. MUSCULOSKELETAL: + pain PSYCHIATRIC: Denies current depression or suicidal thoughts. Physical Examinations : Constitutional : Cooperative , not in acute distress . Neurologic : Cranial nerve II to XII intact. No focal neurological deficits. Psychiatric : alert & oriented x 3. Matching mood & appropriate affect. Judgment & insight intact. Musculoskeletal : +BL NAYAN TTP Cervical Spine Motor strength in the deltoid and biceps: Normal right side. Normal Left side Motor strength biceps and the wrist extensors: Normal right side . Normal left side Motor strength in the triceps muscle: Normal right side. Normal left side Deep tendon reflexes: Normal at the biceps. Normal at Brachioradialis. Normal at triceps Vertebral body tenderness to deep palpation over C6 Cervical facet loading test: positive bilaterally C2-C3, C3-C4 Spurling test: positive bilaterally Neck distraction test: positive bilaterally Ronny sign: positive bilaterally Lumbar spine Motor strength lower extremities ,thigh and legs 5/5 Right side , 5/5 Left side Deep tendon reflexes : Normal Knee Jerk. Normal Ankle Jerk Vertebral body tenderness over Melara Test positive Lumbar facet Loading Test: positive Right / positive Left Range of motion of the lumbar spine Flexion 30 degrees, extension 10 degrees Straight Leg Raise test: Left/ Right positive at degrees Nannette test: positive right / positive left. Severe tenderness over the Sacroiliac joint on the Right / Left sides Gaenslen test: positive bilaterally Seated flexion test: positive bilaterally. Sacral spine : Severe tenderness over the Sacroiliac joint: right side / left side Range of motion: Flexion of the lumbar spine <60 degrees Range of motion: Extension of the lumbar spine <20 degrees Gaenslen's Test positive Nannette test: positive right side / left side Thigh Thrust Test Sacral Thrust Test Imaging: MRI non contrast cervical spine from 07/22/[address] with / without contrast brain from 11/11/21 reviewed Assessment/ Plan : Cervical radiculopathy, Occipital Neuralgia, Cervicogenic OTOOLE Recommendation of BL MBB C2-C3/ C3-C4 #1. Risks, benefits of procedure discussed and pt verbalized understanding. Protocol for discontinuation/ continuation of medications isaias procedure discussed. Minimal anesthesia including Fentanyl and Versed if clinically indicated. All questions answered. I have spent greater than 30 minutes on patient care today. Dr Hennessy was available by phone for the evaluation of this patient. The time was used to review the medical records including relevant urine studies and Prescription history (MAPs), review of the available imaging, evaluation and examination of the patient, coordination of care with the medical staff and if applicable referring physicians, as well as creation of the medical record - Pain Location Occipital Non-Pharmacological Interventions: Relaxation Technique Pharmacological Interventions: PRN Medication PQRS Narrative: Smoking Status Never smoker Narcotic Agreement Date Signed 10/13/24 Hx Alcohol Use (MH) No Home Medications: Ambulatory Orders Levalbuterol Hfa Inhaler [Xopenex Hfa Inhaler] 1 - 2 puff INHALATION RT-Q4H PRN 06/20/14 Levothyroxine Sodium [Synthroid] 100 mcg PO DAILY 06/20/14 Montelukast [Singulair] 10 mg PO HS 12/11/17 Calcium Carbonate [Calcium] 600 mg PO DAILY 11/25/23 Fluticasone/Umeclidin/Vilanter [Trelegy Ellipta 200-62.5-25] 1 puff INHALATION RT-DAILY 11/25/23 Zinc Gluconate [Zinc] 50 mg PO DAILY 11/25/23 traMADol HCL 100 mg PO Q4H PRN 11/25/23 Acyclovir [Zovirax] 400 mg PO BID 10/17/24 Ascorbic Acid [Vitamin C] 500 mg PO DAILY 10/17/24 Ashwagandha Root Extract [Ashwagandha] 500 mg PO DAILY 10/17/24 Cholecalciferol (Vitamin D3) [Vitamin D3 (50 Mcg = 2000 Iu)] 50 mcg PO DAILY 10/17/24 LORazepam [Ativan] 0.5 mg PO BID PRN 10/17/24 Levocetirizine Dihydrochloride [Xyzal] 5 mg PO DAILY 10/17/24 Magnesium 600 mg PO HS 10/17/24 atenoloL [Tenormin] 50 mg PO HS 10/17/24 Vitamin K2 [Vitamin K-2] 100 mcg PO DAILY 11/08/24 Diclofenac Sodium Gel [Voltaren 1% Gel] 50 gm TOPICAL BID 30 Days #1 each 11/30/24 Controlled Substance Measures - Controlled Substance Measures Is patient prescribed a controlled substance at discharge?: No
== END ==
LOC: PNWHC3 13:07
PROVIDERS: ATTEND Specialist
DX: M54.81 Occipital neuralgia (principal); M54.12 Radiculopathy, cervical region; G44.86 Cervicogenic headache; Z91.09 Other allergy status, other than to drugs and biological substances; Z91.040 Latex allergy status; Z88.5 Allergy status to narcotic agent; Z88.8 Allergy status to other drugs, medicaments and biological substances
CPT/HCPCS: 99211

== ENCOUNTER → 2025-01-02 | Outpatient (CLI) | payer MEDICARE ==
[2025-01-02 13:11] VITALS: BP 107/72; PULSE 71; RESP 16; TEMP 97.1
--- NOTE | 2025-01-02 15:34 | P.PAINPG ---
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 Pt states she experienced 80 % pain relief x 6 hrs s/p procedure. Pt states pain level is provoked at 8 /10 in intensity, constant, localized in the upper cervical spine, predominantly axial, sharp in character w occasional shooting pain towards the top of the head. Pain is provoked by hyperextension, rotation. Pain is alleviated by PT x 6 wks which ended in early Oct 2024 (cervical), physician guided home exercise/ stretching regimen daily since Sep 2024 (cervical), medications, topical, manual massage, repositioning and rest . Interventional procedures include BL NAYAN x1, BL MBB C2-C4 x1 Medications include Tramadol 50mg #180, Tyl, Ibu, CBD oil REVIEW OF ORGAN SYSTEMS: CONSTITUTIONAL: No fevers or chills. No recent weight loss. NEUROLOGICAL: + numbness and tingling along the distal extremities. No seizure disorders or headaches. MUSCULOSKELETAL: + pain PSYCHIATRIC: Denies current depression or suicidal thoughts. Physical Examinations : Constitutional : Cooperative , not in acute distress . Neurologic : Cranial nerve II to XII intact. No focal neurological deficits. Psychiatric : alert & oriented x 3. Matching mood & appropriate affect. Judgment & insight intact. Musculoskeletal : +BL NAYAN TTP Cervical Spine Motor strength in the deltoid and bic eps: Normal right side. Normal Left side Motor strength biceps and the wrist extensors: Normal right side . Normal left side Motor strength in the triceps muscle: Normal right side. Normal left side Deep tendon reflexes: Normal at the biceps. Normal at Brachioradialis. Normal at triceps Vertebral body tenderness to deep palpation over C6 Cervical facet loading test: positive bilaterally C2-C3, C3-C4 Spurling test: positive bilaterally Neck distraction test: positive bilater ally Ronny sign: positive bilaterally Lumbar spine Motor strength lower extremities ,thigh and legs 5/5 Right side , 5/5 Left side Deep tendon reflexes : Normal Knee Jerk. Normal Ankle Jerk Vertebral body tenderness over Melara Test positive Lumbar facet Loading Test: positive Right / positive Left Range of motion of the lumbar spine Flexion 30 degrees, extension 10 degrees Straight Leg Raise test: Left/ Right po sitive at degrees Nannette test: positive right / positive left. Severe tenderness over the Sacroiliac joint on the Right / Left sides Gaenslen test: positive bilaterally Seated flexion test: positive bilaterally. Sacral spine : Severe tenderness over the Sacroiliac joint: right side / left side Range of motion: Flexion of the lumbar spine <60 degrees Range of motion: Extension of the lumbar spine <20 degrees Gaenslen's Test positive Nannette test: positive right side / left side Thigh Thrust Test Sacral Thrust Test Imaging: MRI non contrast cervical spine from 07/22/[address] with / without contrast brain from 11/11/21 reviewed Assessment/ Plan : Cervical radiculopathy, Occipital Neuralgia, Cervicogenic OTOOLE Recommendation of BL MBB C2-C3/ C3-C4 #2. Risks, benefits of procedure discussed and pt verbalized understanding. Protocol for discontinuation/ continuation of medications isaias procedure discussed. Minimal anesthesia including Fentanyl and Versed if clinically indicated. All questions answered. I have spent greater than 30 minutes on patient care today. Dr Hennessy was available by phone for the evaluation of this patient. The time was used to review the medical records including relevant urine studies and Prescription history (MAPs), review of the available imaging, evaluation and examination of the patient, coordination of care with the medical staff and if applicable referring physicians, as well as creation of the medical record PQRS Narrative: Smoking Status Never smoker Narcotic Agreement Date Signed 10/13/24 Hx Alcohol Use (MH) No Home Medications: Ambulatory Orders Levalbuterol Hfa Inhaler [Xopenex Hfa Inhaler] 1 - 2 puff INHALATION RT-Q4H PRN 06/20/14 Levothyroxine Sodium [Synthroid] 100 mcg PO DAILY 06/20/14 Montelukast [Singulair] 10 mg PO HS 12/11/17 Calcium Carbonate [Calcium] 600 mg PO DAILY 11/25/23 Fluticasone/Umeclidin/Vilanter [Trelegy Ellipta 200-62.5-25] 1 puff INHALATION RT-DAILY 11/25/23 Zinc Gluconate [Zinc] 50 mg PO DAILY 11/25/23 traMADol HCL 100 mg PO Q4H PRN 11/25/23 Acyclovir [Zovirax] 400 mg PO BID 10/17/24 Ascorbic Acid [Vitamin C] 500 mg PO DAILY 10/17/24 Ashwagandha Root Extract [Ashwagandha] 500 mg PO DAILY 10/17/24 Cholecalciferol (Vitamin D3) [Vitamin D3 (50 Mcg = 2000 Iu)] 50 mcg PO DAILY 10/17/24 LORazepam [Ativan] 0.5 mg PO BID PRN 10/17/24 Levocetirizine Dihydrochloride [Xyzal] 5 mg PO DAILY 10/17/24 Magnesium 600 mg PO HS 10/17/24 atenoloL [Tenormin] 50 mg PO HS 10/17/24 Vitamin K2 [Vitamin K-2] 100 mcg PO DAILY 11/08/24 Diclofenac Sodium Gel [Voltaren 1% Gel] 50 gm TOPICAL BID 30 Days #1 each 11/30/24 Controlled Substance Measures - Controlled Substance Measures Is patient prescribed a controlled substance at discharge?: No
== END ==
LOC: PNWHC3 12:51
PROVIDERS: ATTEND Specialist
DX: M54.12 Radiculopathy, cervical region (principal); M54.81 Occipital neuralgia; G44.86 Cervicogenic headache; Z91.048 Other nonmedicinal substance allergy status; Z88.1 Allergy status to other antibiotic agents; Z91.040 Latex allergy status; Z88.5 Allergy status to narcotic agent
CPT/HCPCS: 99211

== ENCOUNTER 2025-01-24 11:06 | Day surgery (SDC) | payer MEDICARE ==
[2025-01-23 10:26] VITALS: BMI 25.4
[2025-01-24] MEDS: IV FLUID CONTINUATION 1,000 ML IV ONE ×2 (11:26→12:17)
[2025-01-24 11:28] VITALS: TEMP 97.5
[2025-01-24 11:33] LABS: Glucose,Whole Blood 87 mg/dL (70-110)
[2025-01-24] MEDS: LACTATED RINGERS 1,000 ML IV SCH (11:33)
[2025-01-24] MEDS ORDERED: MIDAZOLAM 2 MG/2 ML VIAL ONE (11:50)
[2025-01-24] MEDS ORDERED: fentaNYL (PF) 50 MCG/ML 2 ML AMP ONE (11:50)
[2025-01-24] MEDS ORDERED: ROPIVACAINE 5MG/ML 20ML VIAL ONE (11:50)
[2025-01-24] MEDS ORDERED: ONDANSETRON 4 MG/2 ML VIAL ONE (11:50)
--- NOTE | 2025-01-24 12:08 | P.PCN ---
Date of Procedure: 01/24/25 Procedure(s) Performed: PREOPERATIVE DIAGNOSIS: 1-Cervical Spondylosis with Facet Arthropathy.without myelopathy. 2-cervical degenerative disc disease 3-cervicogenic headache. 4-occipital neuralgia POSTOPERATIVE DIAGNOSIS: Same as preop diagnosis. PROCEDURES: Diagnostic bilateral C2 ,C3, C4 medial branch blocks, with fluoroscopic guidance (fluoroscopy images available in radiology department ) ( to target the facet joint at bilateral C2-3 , C3-4 )#2nd ANESTHESIA:moderate sedation with Versed 3 mg , and fentanyl 100 micrograms (sedation was started at 11:50, end at 12:06 ) EBL: Minimal PROCEDURE INDICATION: The patient with neck pain secondary to cervical arthropathy unresponsive to more conservative treatments. PROCEDURE DESCRIPTION / TECHNIQUE: The patient was seen and identified in the preoperative area. Risks, benefits, complications, and alternatives were discussed with the patient, the patient agreed to proceed with the procedure and signed the consent. IV was started. Vital signs remained stable throughout the procedure. Patient was taken to the OR and time out was completed. The patient was placed in the prone position on the procedure table. A pillow was placed under the patients chest to increase the cervical interlaminar space. The cervical area was prepped and draped in the usual sterile fashion. Critical pause was taken. Vital signs were closely monitored during the procedure. Conscious sedation was used during the procedure to decrease patients anxiety. Using cross-table lateral fluoroscopy, the centroid of the trapezoid of right C2 ,C3, C4 was identified, marked, and localized with 1% lidocaine 1 ml at each level for skin and Sub Q infiltrations . Subsequently, a 23 G 3 spinal needle was advanced guided by fluoroscopy to the centroid of the trapezoid of Right C2 , C3, C4 . Webster tip position was confirmed at the centroid of the trapezoids of Right C2 ,C3 , C4 with anteroposterior fluoroscopy. Subsequently,1.5 ml of preservative-free Ropivacaine 0.5% and half ml was injected after negative aspiration for blood and CSF. Webster was then removed intact the same procedure was repeated at the left C2 ,C3 , C4 levels. COMPLICATIONS: No acute complications. DISPOSITION / PLANS: The patient was placed in a supine position and transferred to the recovery area in a stable condition for observation and was discharged from the recovery room after meeting discharge criteria. Home discharge instructions given to the patient by the staff. The patient was reexamined prior to discharge. The patient will schedule a follow up in the clinic in 2-4 weeks.
[2025-01-24 12:19] VITALS: PULSE 73; RESP 16
--- NOTE | 2025-01-24 12:25 | FL ---
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 DAP: 0.11593 mGym2 Gycm2 uGym2 cGycm2 or equivalent. FINDINGS: Fluoroscopic images during injection for pain management demonstrate multilevel degeneration changes throughout the spine. No evidence for fracture. No acute process identified. IMPRESSION: 1. No evidence for intraoperative complication. 2. Please see the operative/procedural note for further details. [facility], , 01/24/2025 12:23 PM
[2025-01-24 12:37] VITALS: BP 118/67
== END 2025-01-24 12:54 | disposition home or self-care (01) ==
LOC: ORPAIN 11:06
PROVIDERS: ATTEND Specialist
DX: M47.812 Spondylosis without myelopathy or radiculopathy, cervical region (principal); G44.86 Cervicogenic headache; M50.30 Other cervical disc degeneration, unspecified cervical region; M54.81 Occipital neuralgia
CPT/HCPCS: 64490; 64491; J2250; J2405; J3010; J2795; 99152

== ENCOUNTER → 2025-02-06 | Outpatient (CLI) | payer MEDICARE ==
--- NOTE | 2025-02-06 15:28 | P.PAINPG ---
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 Pt states she experienced 80 % pain relief x 8 hrs s/p procedure. Pt states pain level is provoked at 8 /10 in intensity, constant, localized in the upper cervical spine, predominantly axial, sharp in character w occasional shooting pain towards the top of the head. Pain is provoked by hyperextension, rotation. Pain is alleviated by PT x 6 wks which ended in early Oct 2024 (cervical), physician guided home exercise/ stretching regimen daily since Sep 2024 (cervical), medications, topical, manual massage, repositioning and rest . Interventional procedures include BL NAYAN x1, BL MBB C2-C4 x2 Medications include Tramadol 50mg #180, Tyl, Ibu, CBD oil REVIEW OF ORGAN SYSTEMS: CONSTITUTIONAL: No fevers or chills. No recent weight loss. NEUROLOGICAL: + numbness and tingling along the distal extremities. No seizure disorders or headaches. MUSCULOSKELETAL: + pain PSYCHIATRIC: Denies current depression or suicidal thoughts. Physical Examinations : Constitutional : Cooperative , not in acute distress . Neurologic : Cranial nerve II to XII intact. No focal neurological deficits. Psychiatric : alert & oriented x 3. Matching mood & appropriate affect. Judgment & insight intact. Musculoskeletal : +BL NAYAN TTP Cervical Spine Motor strength in the deltoid and bic eps: Normal right side. Normal Left side Motor strength biceps and the wrist extensors: Normal right side . Normal left side Motor strength in the triceps muscle: Normal right side. Normal left side Deep tendon reflexes: Normal at the biceps. Normal at Brachioradialis. Normal at triceps Vertebral body tenderness to deep palpation over C6 Cervical facet loading test: positive bilaterally C2-C3, C3-C4 Spurling test: positive bilaterally Neck distraction test: positive bilater ally Ronny sign: positive bilaterally Lumbar spine Motor strength lower extremities ,thigh and legs 5/5 Right side , 5/5 Left side Deep tendon reflexes : Normal Knee Jerk. Normal Ankle Jerk Vertebral body tenderness over Melara Test positive Lumbar facet Loading Test: positive Right / positive Left Range of motion of the lumbar spine Flexion 30 degrees, extension 10 degrees Straight Leg Raise test: Left/ Right po sitive at degrees Nannette test: positive right / positive left. Severe tenderness over the Sacroiliac joint on the Right / Left sides Gaenslen test: positive bilaterally Seated flexion test: positive bilaterally. Sacral spine : Severe tenderness over the Sacroiliac joint: right side / left side Range of motion: Flexion of the lumbar spine <60 degrees Range of motion: Extension of the lumbar spine <20 degrees Gaenslen's Test positive Nannette test: positive right side / left side Thigh Thrust Test Sacral Thrust Test Imaging: MRI non contrast cervical spine from 07/22/[address] with / without contrast brain from 11/11/21 reviewed Assessment/ Plan : Cervical radiculopathy, Occipital Neuralgia, Cervicogenic OTOOLE Recommendation of BL RFA C2-C3/ C3-C4. Risks, benefits of procedure discussed and pt verbalized understanding. Protocol for discontinuation/ continuation of medications isaias procedure discussed. Minimal anesthesia including Fentanyl and Versed if clinically indicated. All questions answered. I have spent greater than 30 minutes on patient care today. Dr Hennessy was available by phone for the evaluation of this patient. The time was used to review the medical records including relevant urine studies and Prescription history (MAPs), review of the available imaging, evaluation and examination of the patient, coordination of care with the medical staff and if applicable referring physicians, as well as creation of the medical record PQRS Narrative: Smoking Status Never smoker Narcotic Agreement Date Signed 10/13/24 Hx Alcohol Use (MH) No Home Medications: Ambulatory Orders Levalbuterol Hfa Inhaler [Xopenex Hfa Inhaler] 1 - 2 puff INHALATION RT-Q4H PRN 06/20/14 Levothyroxine Sodium [Synthroid] 100 mcg PO DAILY 06/20/14 Montelukast [Singulair] 10 mg PO HS 12/11/17 Calcium Carbonate [Calcium] 600 mg PO DAILY 11/25/23 Fluticasone/Umeclidin/Vilanter [Trelegy Ellipta 200-62.5-25] 1 puff INHALATION RT-DAILY 11/25/23 Zinc Gluconate [Zinc] 50 mg PO DAILY 11/25/23 traMADol HCL 100 mg PO Q4H PRN 11/25/23 Acyclovir [Zovirax] 400 mg PO BID 10/17/24 Ascorbic Acid [Vitamin C] 500 mg PO DAILY 10/17/24 Ashwagandha Root Extract [Ashwagandha] 500 mg PO DAILY 10/17/24 Cholecalciferol (Vitamin D3) [Vitamin D3 (50 Mcg = 2000 Iu)] 50 mcg PO DAILY 10/17/24 LORazepam [Ativan] 0.5 mg PO BID PRN 10/17/24 Levocetirizine Dihydrochloride [Xyzal] 5 mg PO DAILY 10/17/24 Magnesium 600 mg PO HS 10/17/24 atenoloL [Tenormin] 50 mg PO HS 10/17/24 Vitamin K2 [Vitamin K-2] 100 mcg PO DAILY 11/08/24 Controlled Substance Measures - Controlled Substance Measures Is patient prescribed a controlled substance at discharge?: No
[2025-02-06 15:33] VITALS: BP 134/76; PULSE 100; RESP 16; TEMP 98.3
== END ==
LOC: PNWHC3 14:25
PROVIDERS: ATTEND Specialist
DX: M54.12 Radiculopathy, cervical region (principal); M54.81 Occipital neuralgia; Z91.040 Latex allergy status; Z91.048 Other nonmedicinal substance allergy status; Z88.6 Allergy status to analgesic agent; Z88.1 Allergy status to other antibiotic agents
CPT/HCPCS: 99211

== ENCOUNTER 2025-02-21 12:31 | Day surgery (SDC) | payer MEDICARE ==
[2025-02-21 12:59] VITALS: TEMP 97.9
[2025-02-21] MEDS: LACTATED RINGERS 1,000 ML IV SCH (12:59)
[2025-02-21] MEDS: IV FLUID CONTINUATION 1,000 ML IV ONE (13:00)
[2025-02-21] MEDS: LIDOCAINE 1% (10MG/ML) FOR IV START INTRADERMA STA (13:00)
[2025-02-21 13:18] LABS: Glucose,Whole Blood 84 mg/dL (70-110)
[2025-02-21] MEDS ORDERED: MIDAZOLAM 2 MG/2 ML VIAL ONE (14:08)
[2025-02-21] MEDS ORDERED: fentaNYL (PF) 50 MCG/ML 2 ML AMP ONE (14:08)
[2025-02-21] MEDS ORDERED: ONDANSETRON 4 MG/2 ML VIAL ONE (14:08)
[2025-02-21] MEDS ORDERED: ROPIVACAINE 5MG/ML 20ML VIAL ONE (14:08)
--- NOTE | 2025-02-21 14:39 | P.PCN ---
Description of Procedure: Procedure done. Left C2-3, C3-4 facet joint (C3,C4 medial branch of dorsal ramus and third occipital nerve) radiofrequency ablation under fluoroscopic guidance. Anesthesia. Moderate sedation with Versed 3 mg and fentanyl 100 mcg. Local infiltration with 1% lidocaine subcutaneously. Continuous pulse ox, EKG, blood pressure and verbal communication was maintained with the patient in OR. Time. Start 1408 . Stop 1436 . Blood loss. None. Indication. Patient has got the diagnoses of cervical spondylolysis, facet joint arthropathy with neck pain. Diagnostic medial branch block relieved significant pain. Discussed with the patient procedure, alternatives, complications including infection, bleeding, nerve damage, paralysis all of which could be permanent. Patient understands and all questions are answered. Procedure note. After getting consent patient in OR in prone position. Back of the neck was prepped with chlorhexidine and draped in sterile fashion. After injecting 3 mL of plain 1% lidocaine subcutaneously, a 20-gauge RFA needle was introduced under tunnel vision of the fluoroscope AP view at the waist of the articular pillar (lateral mass) at C4 vertebral level. In the lateral view of the fluoroscope it was confirmed that the tip of the needle stayed within the dorsal half of the articular pillar (lateral mass). C3-4 facet joint was targeted by blocking C4 and C3 medial branch, C2-3 facet joint was targeted by blocking C3 medial branch and third occipital nerve. In exactly the same way , after subcutaneous injection of lidocaine, 20-gauge RFA needle were introduced under tunnel vision of the fluoroscope AP view at the waist of the articular pillars (lateral mass) at C3 vertebral level. In the lateral view of the fluoroscope it was confirmed that the tip of the needle stayed within the dorsal half of the articular pillar (lateral mass). To target third occipital nerve needle was placed at the lateral border of C2-3 zygapophyseal joint itself. After positive sensory and negative motor stimulation, radiofrequency ablation was done at 80 C's for 90 seconds. Second lesion was done at the same settings after rotating the needls 180 degrees. After the procedure needle was taken out and bandage was applied. Disposition. Patient tolerated the procedure well. No complication. Discharged home in stable condition.
[2025-02-21] MEDS: IV FLUID CONTINUATION 200 ML IV ONE (14:45)
[2025-02-21 15:01] VITALS: BP 146/84; PULSE 66; RESP 16
[2025-02-21 15:01] LABS: Glucose,Whole Blood 85 mg/dL (70-110)
--- NOTE | 2025-02-21 15:46 | FL ---
EXAMINATION TYPE: FL guided pain mgmt statistic DATE OF EXAM: 02/21/2025 FLUOROSCOPY FLUORO TIME: 2 MIN DAP: .[id number] Cervical facet pain management injection There are 2 images are submitted. [facility], Workstation: [id number], 02/21/2025 3:43 PM
== END 2025-02-21 15:19 | disposition home or self-care (01) ==
LOC: ORPAIN 12:31
PROVIDERS: ATTEND Pain Medicine Interventional Pain Medicine
DX: M43.02 Spondylolysis, cervical region (principal); M47.812 Spondylosis without myelopathy or radiculopathy, cervical region
CPT/HCPCS: 64633; 64634; J2250; J2405; J3010; J2795; 99152

== ENCOUNTER 2025-03-10 11:34 | Day surgery (SDC) | payer MEDICARE ==
[2025-03-10 12:01] VITALS: RESP 16; TEMP 97
[2025-03-10] MEDS: IV FLUID CONTINUATION 1,000 ML IV ONE ×3 (12:05→14:16)
[2025-03-10 12:19] LABS: Glucose,Whole Blood 91 mg/dL (70-110)
[2025-03-10] MEDS ORDERED: fentaNYL (PF) 50 MCG/ML 2 ML AMP ONE (13:12)
[2025-03-10] MEDS ORDERED: ROPIVACAINE 5MG/ML 20ML VIAL ONE (13:12)
[2025-03-10] MEDS ORDERED: methylPREDNISolone ACETATE 40 MG/ML 1 ML VIAL ONE (13:12)
[2025-03-10] MEDS ORDERED: ONDANSETRON 4 MG/2 ML VIAL ONE (13:12)
[2025-03-10] MEDS ORDERED: MIDAZOLAM 2 MG/2 ML VIAL ONE (13:12)
--- NOTE | 2025-03-10 13:33 | P.PCN ---
Date of Procedure: 03/10/25 Procedure(s) Performed: PREOPERATIVE DIAGNOSIS: 1-Cervical spondylosis with Facet Arthropathy without myelopathy. 2-Cervecogenic headache. 3-cervical neuralgia POSTOPERATIVE DIAGNOSIS: Same as preop diagnosis. PROCEDURES: Radiofrequency thermocoagulation Right C2 , C3, C4 medial branch with Fluroscopy [place](fluoroscopy was available in Radiology department ) (to denervate the facet joint at Right C2-3 ,C3- 4 ) ANESTHESIA: moderate sedation with fentanyl 100 micrograms and Versed 4 mg (sedation start time 13:12, end time 13:28 ) EBL: Minimal PROCEDURE INDICATION: The patient with neck pain secondary to cervical arthropathy who had more than 50% relief of her pain with previous diagnostic cervical medial branch block. PROCEDURE DESCRIPTION / TECHNIQUE: The patient was seen and identified in the preoperative area. Risks, benefits, complications, and alternatives were discussed with the patient, the patient agreed to proceed with the procedure and signed the consent. IV was started. Vital signs remained stable throughout the procedure. Patient was taken to the OR and time out was completed. The patient was placed in the prone position on the procedure table. A pillow was placed under the patients chest to increase the cervical interlaminar space. The cervical area was prepped and draped in the usual sterile fashion. Critical pause was taken. Vital signs were closely monitored during the procedure. Conscious sedation was used during the procedure to decrease patients anxiety. Using cross-table lateral fluoroscopy, the centroid of the trapezoid of Right C2 ,C3, C4 were identified, marked, and localized with 1% lidocaine. Subsequently, a 20 [id number] radiofrequency cannula with a 10-mm active tip was advanced guided by fluoroscopy to the centroid of the trapezoid of Right C2 ,C3, C4. Needle tip position was confirmed at the centroid of the trapezoids of Right C2 ,C3, C4 with anteroposterior fluoroscopy. Each site then underwent sensory testing at 50 Hz and 0 to 1 volt and motor testing at 2 Hz and 0 to 3 volt with local stimulation, but no radicular symptoms down the arm. Thereafter each sites underwent radiofrequency thermocoagulation at 80 degrees celsius for 90 seconds after injecting 0.5 ml of PF Ropivacaine 0.5 %. After thermocoagulation, 1 ml of the block solution containing Depo-Medrol 40 mg and 3 mL of preservative-free normal saline was injected at the right C2 , C3, C4, levels after negative aspiration of CSF and blood and with no paresthesias. Cannulas were retracted while injecting lidocaine 1% until the needle is out. Skin was cleansed and bandages were applied. COMPLICATIONS: No acute complications. DISPOSITION / PLANS: The patient was placed in a supine position and transferred to the recovery area in a stable condition for observation and was discharged from the recovery room after meeting discharge criteria. Home discharge instructions given to the patient by the staff. The patient was reexamined prior to discharge. The patient will schedule a follow up in the clinic in 2-4 weeks.
--- NOTE | 2025-03-10 13:40 | FL ---
Fluoroscopy History: M47.812 RAD FREQ FB CERVICAL RF FB CERVIAL, 6.8 SECONDS FLUORO, DAP: [id number] [facility], , 03/10/2025 1:37 PM
[2025-03-10 14:19] VITALS: BP 146/85; PULSE 73
== END 2025-03-10 14:27 | disposition home or self-care (01) ==
LOC: ORPAIN 11:34
PROVIDERS: ATTEND Specialist
DX: M47.812 Spondylosis without myelopathy or radiculopathy, cervical region (principal); G44.86 Cervicogenic headache; Z91.040 Latex allergy status; Z88.5 Allergy status to narcotic agent; Z88.1 Allergy status to other antibiotic agents; Z88.8 Allergy status to other drugs, medicaments and biological substances
CPT/HCPCS: 64633; 64634; J2250; J2405; J3010; J2795; J1010; 99152

== ENCOUNTER → 2025-03-20 | Outpatient (CLI) | payer MEDICARE ==
[2025-03-20 14:04] VITALS: BP 123/79; PULSE 89; RESP 16
--- NOTE | 2025-03-20 16:12 | P.PAINPG ---
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 Pt states she experienced >50 % pain relief s/p procedure. Pt states pain level is provoked at 8 /10 in intensity, constant, localized in the upper L cervical spine, predominantly axial, sharp in character w occasional shooting pain towards the top L of the head. Pain is provoked by hyperextension, rotation. Pain is alleviated by PT x 6 wks which ended in early Oct 2024 (cervical), physician guided home exercise/ stretching regimen daily since Sep 2024 (cervical), medications, topical, manual massage, repositioning and rest . Interventional procedures include BL NAYAN x1, BL RFA C2-C4 () Medications include Tramadol 50mg #180, Tyl, Ibu, CBD oil REVIEW OF ORGAN SYSTEMS: CONSTITUTIONAL: No fevers or chills. No recent weight loss. NEUROLOGICAL: + numbness and tingling along the distal extremities. No seizure disorders or headaches. MUSCULOSKELETAL: + pain PSYCHIATRIC: Denies current depression or suicidal thoughts. Physical Examinations : Constitutional : Cooperative , not in acute distress . Neurologic : Cranial nerve II to XII intact. No focal neurological deficits. Psychiatric : alert & oriented x 3. Matching mood & appropriate affect. Judgment & insight intact. Musculoskeletal : +BL NAYAN TTP Cervical Spine Motor strength in the deltoid and bic eps: Normal right side. Normal Left side Motor strength biceps and the wrist extensors: Normal right side . Normal left side Motor strength in the triceps muscle: Normal right side. Normal left side Deep tendon reflexes: Normal at the biceps. Normal at Brachioradialis. Normal at triceps Vertebral body tenderness to deep palpation over C6 Cervical facet loading test: positive bilaterally C2-C3, C3-C4 Spurling test: positive bilaterally Neck distraction test: positive bilater ally Ronny sign: positive bilaterally Lumbar spine Motor strength lower extremities ,thigh and legs 5/5 Right side , 5/5 Left side Deep tendon reflexes : Normal Knee Jerk. Normal Ankle Jerk Vertebral body tenderness over Melara Test positive Lumbar facet Loading Test: positive Right / positive Left Range of motion of the lumbar spine Flexion 30 degrees, extension 10 degrees Straight Leg Raise test: Left/ Right po sitive at degrees Nannette test: positive right / positive left. Severe tenderness over the Sacroiliac joint on the Right / Left sides Gaenslen test: positive bilaterally Seated flexion test: positive bilaterally. Sacral spine : Severe tenderness over the Sacroiliac joint: right side / left side Range of motion: Flexion of the lumbar spine <60 degrees Range of motion: Extension of the lumbar spine <20 degrees Gaenslen's Test positive Nannette test: positive right side / left side Thigh Thrust Test Sacral Thrust Test Imaging: MRI non contrast cervical spine from 07/22/[address] with / without contrast brain from 11/11/21 reviewed Assessment/ Plan : Cervical radiculopathy, Occipital Neuralgia, Cervicogenic OTOOLE Recommendation of medication management. Flexeril 5mg #60 NR. Use, side effects, adverse reactions, safe storage discussed. All questions answered. I have spent greater than 30 minutes on patient care today. Dr Hennessy was available by phone for the evaluation of this patient. The time was used to review the medical records including relevant urine studies and Prescription history (MAPs), review of the available imaging, evaluation and examination of the patient, coordination of care with the medical staff and if applicable referring physicians, as well as creation of the medical record - Pain Location Left Neck Non-Pharmacological Interventions: Ice Pharmacological Interventions: Medication PQRS Narrative: Smoking Status Never smoker Narcotic Agreement Date Signed 10/13/24 Hx Alcohol Use (MH) No Home Medications: Ambulatory Orders Levalbuterol Hfa Inhaler [Xopenex Hfa Inhaler] 1 - 2 puff INHALATION RT-Q4H PRN 06/20/14 Levothyroxine Sodium [Synthroid] 100 mcg PO DAILY 06/20/14 Montelukast [Singulair] 10 mg PO HS 12/11/17 Calcium Carbonate [Calcium] 600 mg PO DAILY 11/25/23 Fluticasone/Umeclidin/Vilanter [Trelegy Ellipta 200-62.5-25] 1 puff INHALATION RT-DAILY 11/25/23 Zinc Gluconate [Zinc] 50 mg PO DAILY 11/25/23 traMADol HCL 100 mg PO Q4H PRN 11/25/23 Acyclovir [Zovirax] 400 mg PO BID 10/17/24 Ascorbic Acid [Vitamin C] 500 mg PO DAILY 10/17/24 Ashwagandha Root Extract [Ashwagandha] 500 mg PO DAILY 10/17/24 Cholecalciferol (Vitamin D3) [Vitamin D3 (50 Mcg = 2000 Iu)] 50 mcg PO DAILY 10/17/24 LORazepam [Ativan] 0.5 mg PO BID PRN 10/17/24 Levocetirizine Dihydrochloride [Xyzal] 5 mg PO DAILY 10/17/24 Magnesium 600 mg PO HS 10/17/24 atenoloL [Tenormin] 50 mg PO HS 10/17/24 Vitamin K2 [Vitamin K-2] 100 mcg PO DAILY 11/08/24 Cyclobenzaprine [Flexeril] 5 mg PO HS PRN 30 Days #60 tab 03/20/25 Controlled Substance Measures - Controlled Substance Measures Is patient prescribed a controlled substance at discharge?: No
== END ==
LOC: PNWHC3 13:42
PROVIDERS: ATTEND Specialist
DX: M47.22 Other spondylosis with radiculopathy, cervical region (principal); M54.81 Occipital neuralgia; G44.86 Cervicogenic headache; Z88.1 Allergy status to other antibiotic agents; Z91.040 Latex allergy status; Z88.5 Allergy status to narcotic agent; Z91.048 Other nonmedicinal substance allergy status
CPT/HCPCS: 99212